=== PATIENT | male | born 1975 | race African-American/Black ===

== ENCOUNTER → 2017-02-27 | Outpatient (CLI) | payer MEDICAID, SELFPAY | PROVIDERS: Visit Provider Internal Medicine | DX: K30 Functional dyspepsia (principal) | CPT/HCPCS: 78264; A9541 ==

== ENCOUNTER → 2019-02-10 08:07 | Outpatient (CLI) | payer OTHER, SELFPAY | PROVIDERS: Visit Provider Family Medicine | DX: B83.9 Helminthiasis, unspecified (principal) | CPT/HCPCS: 87177 ==

== ENCOUNTER → 2020-12-22 07:56 | Outpatient (CLI) | payer OTHER, SELFPAY ==
--- NOTE | 2020-12-22 08:00 | US_ITS ---
PROCEDURE: US GALLBLADDER CLINICAL INDICATION: RUQ PAIN COMPARISON: No exams were available for comparison FINDINGS: Pancreas: Unremarkable/Not well seen Liver: Unremarkable. There is appropriate direction of blood flow within a non dilated portal vein. Right kidney: Unremarkable appearing. No hydronephrosis. Gallbladder: No stones are evident. There is no gallbladder wall thickening. Common duct is normal in diameter. IMPRESSION: Negative gallbladder ultrasound. No stones evident. Dictated by: Jose Cervantes MD 12/22/2020 09:26 Jose Cervantes MD in [place] 12/22/2020 09:26
--- NOTE | 2020-12-22 08:01 | FL_ITS ---
PROCEDURE: FL UPPER GI SMALL BOWEL CLINICAL INDICATION: LOWER ABD PAIN,ABD PAIN COMPARISON: No exams were available for comparison FINDINGS: Fluoroscopy time: 2.18 minutes. Box Attacher exam demonstrates a mild amount of retained colonic feces in the ascending and transverse colon. The esophagus has an unremarkable appearance. There was some minimal GE reflux noted. The stomach and duodenum are unremarkable. No mass or ulcerative lesion is evident. Small bowel follow-through was performed. Small bowel has an unremarkable appearance. No mass or obstructing lesions evident. No mucosal abnormalities. Spot views of the terminal ileum are unremarkable. IMPRESSION: Minimal GE reflux otherwise negative upper GI and small-bowel follow-through Dictated by: Jose Cervantes MD 12/22/2020 14:11 Jose Cervantes MD in [place] 12/22/2020 14:11
== END ==
PROVIDERS: PCP Family Medicine; Visit Provider Family Medicine
DX: R10.11 Right upper quadrant pain (principal); R10.84 Generalized abdominal pain; R10.30 Lower abdominal pain, unspecified
CPT/HCPCS: 74246; 74248; 76705

== ENCOUNTER 2021-03-23 18:57 | Emergency (ER) | payer OTHER, SELFPAY ==
[2021-03-23 19:16] VITALS: BMI 29.8
[2021-03-23 19:55] VITALS: BP 146/91; PULSE 68; RESP 18; TEMP 36.8; O2SAT 100; BMI 26.4
--- NOTE | 2021-03-23 20:32 | HMH.EDUTC ---
[facility] Disposition Clinical Impression: Puncture wound Disposition: Home, Self-Care Condition on Discharge: Good Instructions: DI for Puncture Wound, Amoxicillin and Clavulanic Acid Additional Instructions: Clean area well with antibacterial soap and water Take medication as prescribed FOllow up with Family Doctor immediately if any signs of worsening infection such as swelling, redness drainage or red streaks Return if needed Straight to ER if any life threatening symptoms Prescriptions: Amoxicillin/Potassium Clav [Augmentin 875-125 Tablet] 1 tab PO Q12H 7 Days #14 tab Transmission Status: Pending to Clinic Pharmacy [facility] Referrals: Jasper Quinteros MD [Primary Care Provider] - As needed Time of Disposition: 20:37 Medical Decision Making - Stanley Inquiry Pt receiving controlled substance: No Stanley was queried for this patient: No Vital Signs: 03/23/21 19:55 Temperature 98.2 F Temperature Source Oral Pulse Rate [Right Brachial] 68 Respiratory Rate 18 Blood Pressure [Right Arm] 146/91 H Blood Pressure Mean [Right Arm] 109 Blood Pressure Source [Right Arm] Automatic Cuff Blood Pressure Position [Right Arm] Sitting 02 Sat by Pulse Oximetry 100 Oxygen Delivery Method Room Air Orders (Tests/Meds): ED MEDICATIONS Discontinued Medications Generic Name Dose Route Start Last Admin Trade Name Freq PRN Reason Stop Dose Admin Tetanus/Reduced Diphtheria/Acell Pertussis 0.5 ml 03/23/21 19:16 03/23/21 20:00 Tet/Diphth/Pert-Adult 0.5ml Syringe IM 03/23/21 19:17 0.5 ml .ONCE ONE Administration [facility] HPI - General Stated complaint: screw punctured R hand Time Seen by Provider: 03/23/21 20:32 Mode of Arrival: Ambulatory Source of Information: Patient, Spouse Limitations: No Limitations Description of Symptoms (Recalled from Triage Doc. by RN): PATIENT C/O PUNCTURE WOUND FROM SCREW TO RIGHT HAND THAT OCCURED LAST NIGHT AND NEEDS TETANUS SHOT HEENT Symptoms (Recalled from RN notes): No Resp Symptoms (Recalled from RN notes): No Skin Symptoms (Recalled from RN notes): Yes MS Symptoms (Recalled from RN notes): No Functional Status (Recalled from RN notes): WNL - History of Present Illness Provider Complaint: Patient states that a screw punctured through the side of his palm of his hand State that he is needing a tetanus shot and thinks it may be getting infected it was looking a little red so he wanted to get it checked out - Related Data Home Medications Medication Instructions Recorded Confirmed Atorvastatin Calcium [Lipitor 10mg 10 mg PO DAILY 10/14/18 03/23/21 Tab] Previous Rx's Medication Instructions Recorded Amoxicillin/Potassium Clav 1 tab PO Q12H 7 Days #14 tab 03/23/21 [Augmentin 875-125 Tablet] Allergies Allergy/AdvReac Type Severity Reaction Status Date / Time No Known Allergies Allergy Verified 10/14/18 10:10 - Worker's Comp Is this a Worker's Comp case?: No [facility] History - Hepatitis A Screen Drug use history?: No High risk sexual behaviors?: No History of sexually transmitted infection?: No Currently employed?: No Childcare worker?: No Do you have indoor plumbing?: Yes Do you have electricity?: Yes Attestation statement:: This patient has been screened for Hepatitis A risk factors. I have reviewed the patient's past medical history: Yes - Social History Smoking Status: Current every day smoker Tobacco Type: cigarettes # Packs/Day (cigarettes): 1 Alcohol Intake: never Occupational Status: other ROS Obtained: Yes All systems reviewed & no additional complaints, Yes Systems reviewed as appropriate & no additional complaints - Constitutional Constitutional: Reports system reviewed and no additional complaints, except as docu, Denies body ache, Denies chills, Denies fever(s) - ENT Ears, Nose, Mouth, and Throat: Reports system reviewed and no additional complaints, except as docu - Cardiovascular Cardiovascular: Reports system reviewed
[2021-03-23 20:40] VITALS: BP 146/91; PULSE 68; RESP 18; TEMP 36.8; O2SAT 100
== END 2021-03-23 20:46 | disposition home or self-care (01) ==
PROVIDERS: Emergency Provider Nurse Practitioner; PCP Family Medicine
DX: S61.431A Puncture wound without foreign body of right hand, initial encounter (principal); W22.09XA Striking against other stationary object, initial encounter; Y92.89 Other specified places as the place of occurrence of the external cause; E78.5 Hyperlipidemia, unspecified
CPT/HCPCS: 90471; 90715; 99202; G0463

== ENCOUNTER 2021-04-13 18:43 | Inpatient (IN) | payer OTHER, SELFPAY ==
[2021-04-13] VITALS (13 sets, daily range): BP systolic 95–181; BP diastolic 42–126; PULSE 54–100; RESP 16–20; TEMP 36.6–37.1; O2SAT 91–100; BMI 27.2
--- NOTE | 2021-04-13 | IR_ITS ---
APPROVED REPORT Patient Location: [facility] Supervisor: SMILEY Lam RT (R) PROCEDURES Left heart catheterization Left ventriculogram Selective coronary angiogram Mechanical thrombectomy to the proximal dominant right coronary artery followed by drug-eluting stent deployment to the proximal mid and distal dominant right coronary artery in a contiguous manner Drug-eluting stent deployment to the proximal LAD INDICATION Acute inferior lateral ST elevation myocardial infarction, Coronary artery disease Informed consent was obtained prior to the procedure. COMPLICATIONS NONE Estimated Blood Loss: LESS THAN 10 ML TECHNIQUE One percent lidocaine used to anesthetize the right anterior aspect of the wrist. The right radial artery was accessed via the Seldinger technique. A 6 Yi sheath was placed in the right radial artery. 2.5 mg of verapamil, 800 mcg of nitroglycerin, 1mg Lidocaine were given through the arterial sheath. The Poppa 1 catheter was also used to perform left heart catheterization, left ventriculogram and selective coronary angiogram. The Poppa catheter was placed in the dominant right coronary artery and a Choice PT extra-support wire was placed through the occlusion. A penumbra aspiration catheter was then used to aspirate large amounts of thrombus. Upon several passages LUZ-3 flow was restored. Following this two 4 mm x 38 mm resolute Madhav stents were placed proximally mid and distally in a contiguous manner while overlapping one another each being deployed at 16 maxine. Excellent angiographic results were obtained with LUZ 0 flow at the beginning of the procedure and LUZ-3 flow at the end of the procedure. Following this left heart catheterization and left ventriculogram was performed. The catheter was then placed in the left main artery where the selective coronary angiography of the left system was performed. A Choice PT extra-support wire was placed distally into the LAD and a 4 mm x 18 mm resolute Madhav stent was deployed at 16 maxine in the proximal LAD reducing the severe stenosis to 0%. LUZ-3 flow was present before and after the procedure. At the end of procedure the apparatus was removed the sheath was removed good hemostasis was achieved using TR banding patient was transferred to the postop holding area stable condition ANGIOGRAPHIC RESULTS The left main artery Normal The left anterior descending artery Has a proximal concentric 70% stenosis with remaining vessel being widely patent The circumflex artery Nondominant and proximally normal with a 40% stenosis in a small proximal terminal obtuse marginal artery The right coronary artery Massively large dominant and initially proximally thrombosed. Following mechanical aspiration and stenting the right coronary artery is widely patent free of stenosis with wide inline distal flow The MORGAN ventriculogram reveals Ejection fraction of 45% with inferior wall hypokinesis The left ventricular end-diastolic pressure 20 mmHg IMPRESSION Thrombosed proximal dominant right coronary artery with successful mechanical thrombectomy followed by drug-eluting stent deployment restoring flow to LUZ-3 flow Severe stenosis in the proximal LAD followed by stenting reducing the stenosis to 0% Ejection fraction of 45% with regional wall motion abnormality Mildly elevated LVEDP PLAN 1. Brilinta 90 twice daily plus aspirin 81 mg daily 2. LDL goal of 55 to be achieved with high intensity statin 3. Carvedilol once hemodynamically stable 4. JAYDE inhibitor's once hemodynamically stable 5. Avoidance of tobacco products 6. Patient will be started on Xarelto 20 mg daily because of his atrial fibrillation. The duration of the atr
--- NOTE | 2021-04-13 18:39 | ECG_ITS ---
APPROVED REPORT Exam: Resting ECG HR:57 bpm ECG Measurements Heart Rate 57 AXES QRSd 104 QRS 82 QT 465 T 129 QTc 459 Conclusion ATRIAL FIBRILLATION WITH SLOW VENTRICULAR RESPONSE MARKED ST ELEVATION, CONSIDER INFERIOR INJURY [MARKED ST ELEVATION W/O NORMALLY INFLECTED T-WAVE IN II/aVF] ACUTE NV UNCONFIRMED REPORT Electronically signed by : Rizwan Meredith MD 04/13/2021 19:28:13
--- NOTE | 2021-04-13 18:46 | XR_ITS ---
PROCEDURE INFORMATION: Exam: XR Chest Exam date and time: 04/13/2021 6:46 PM Age: 46 years old Clinical indication: Pain; Angina pectoris; Patient HX: Stemi alert; Additional info: Cp TECHNIQUE: Imaging protocol: XR of the chest. Views: 1 view. COMPARISON: RF FL UPPER GI SMALL BOWEL 12/22/2020 8:40 AM FINDINGS: Tubes, catheters and devices: Defibrillator pads and chest compression monitoring device project over the patient. Lungs: Lungs are clear. Pleural spaces: No pleural effusion. No pneumothorax. Heart/Mediastinum: Cardiomediastinal silouhette is within normal limits. Bones/joints: No acute osseous abnormality. Soft tissues: Unremarkable. IMPRESSION: No evidence of acute cardiopulmonary disease.
[2021-04-13 18:51] LABS: Coronavirus 19, PCR Not Detected (NotDetected); Influenza A, PCR Not Detected (NotDetected); Influenza B, PCR Not Detected (NotDetected)
--- NOTE | 2021-04-13 18:56 | PC.NURSE ---
dr shereen whittington
[2021-04-13 18:59] LABS: Basophils # 0.2 K/mm3 (0-0.2); Eosinophils # 0.1 K/mm3 (0.0-0.4); Eosinophils % 1.2 % (0.1-12.0); Hemoglobin 14.7 g/dL (14.1-18.0); Lymphocytes # 4.3 K/mm3 (0.7-4.5); Lymphocytes % 45.3 % (10-50); Mean Corpuscular HGB Conc 31.2 g/dL (31.8-35.4); Mean Corpuscular Hemoglobin 27.7 pg (27.0-31.2); Mean Corpuscular Volume 88.9 fl (80-94); Mean Platelet Volume 7.5 fl (7.4-10.4); Monocytes # 0.5 K/mm3 (0.1-1.0); Monocytes % 5.5 % (1.7-9.3); Neutrophils # 4.4 K/mm3 (1.8-7.8); Platelet Count 471 K/mm3 (142-424); Red Blood Count 5.29 M/mm3 (4.60-6.20); Red Cell Distribution Width 13.9 % (11.5-17.5); White Blood Count 9.5 K/mm3 (4.8-10.8)
--- NOTE | 2021-04-13 19:03 | HMH.EDCP ---
ED Disposition Clinical Impression: ST elevation myocardial infarction (STEMI) Qualifiers: Involved coronary artery: unspecified coronary artery Qualified Code(s): I21.3 - ST elevation (STEMI) myocardial infarction of unspecified site Disposition: Admitted As Inpatient Condition on Discharge: Good - Critical Care Critical Care Time: No Attestation: On 04/13/21, the high probability of a clinically significant, sudden or life threatening deterioration of the following system(s) required my full and direct attention, intervention and personal management. The time I documented below is in addition to time spent performing reported procedures but includes the following listed in this critical care notation. Medical Decision Making - Medical Records Medical records reviewed: Yes: I reviewed the patient's medical records. - Stanley Inquiry Pt receiving controlled substance: No Vital Signs: 04/13/21 18:43 04/13/21 19:22 04/13/21 20:00 Temperature 98.0 F 98.0 F 98 F Temperature Source Oral Oral Temporal Artery Scan Pulse Rate 61 Pulse Rate [Right] 54 L 97 H Respiratory Rate 20 20 18 Blood Pressure 154/100 H Blood Pressure [Right Arm] 151/106 H 138/95 H Blood Pressure Mean [Right Arm] 121 109 Blood Pressure Source [Right Arm] Automatic Cuff Blood Pressure Position [Right Arm] Supine 02 Sat by Pulse Oximetry 100 95 Oxygen Delivery Method Room Air Room Air 04/13/21 20:13 04/13/21 20:15 Temperature Temperature Source Pulse Rate Pulse Rate [Right] 84 65 Respiratory Rate 20 Blood Pressure Blood Pressure [Right Arm] 132/93 H 142/96 H Blood Pressure Mean [Right Arm] 106 111 Blood Pressure Source [Right Arm] Blood Pressure Position [Right Arm] Supine Supine 02 Sat by Pulse Oximetry 91 L 92 L Oxygen Delivery Method Room Air Room Air - Lab Data Lab results reviewed: Yes: I reviewed the patient's lab results. Lab Results 04/13/21 18:45: SARS-CoV-2 (PCR) Not detected, Influenza A Untype (PCR) Not detected, Influenza Type B (PCR) Not detected 04/13/21 18:50: WBC 9.5, RBC 5.29, Hgb 14.7, Hct 47.0, MCV 88.9, MCH 27.7, MCHC 31.2 L, RDW 13.9, Plt Count 471 H, MPV 7.5, Neut % (Auto) 46.0, Lymph % (Auto) 45.3, [place] % (Auto) 5.5, Eos % (Auto) 1.2, Baso % (Auto) 2.0, Neut # (Auto) 4.4, Lymph # (Auto) 4.3, [place] # (Auto) 0.5, Eos # (Auto) 0.1, Baso # (Auto) 0.2 04/13/21 18:51: Sodium 138, Potassium 3.5, Chloride 107, Carbon Dioxide 22, Anion Gap 12.5, BUN 18, Creatinine 1.10, Estimated Creat Clear 104, Estimated GFR 73, Est GFR ( Amer) 88, Glucose 165 H, Calcium 9.2, Total Bilirubin 1.0, AST 70 H, ALT 49, Alkaline Phosphatase 67, Troponin I 0.01, Total Protein 7.8, Albumin 4.6, Globulin 3.2, Albumin/Globulin Ratio 1.4 04/13/21 18:57: POC Glucose 117 H Result diagrams: 04/13/21 18:50 04/13/21 18:51 Orders (Tests/Meds): ED MEDICATIONS Generic Name Dose Route Start Last Admin Trade Name Freq PRN Reason Stop Dose Admin Acetaminophen 325 mg 04/13/21 19:51 Acetaminophen 325mg Tab PO 05/13/21 19:50 Q4HP PRN Mild Pain Acetaminophen 650 mg 04/13/21 19:51 Acetaminophen 325mg Tab PO 05/13/21 19:50 Q4HP PRN Mild to Moderate Pain Aspirin 81 mg 04/14/21 09:00 Aspirin Ec 81mg Tablet PO 05/14/21 08:59 DAILY LUIS Atorvastatin Calcium 80 mg 04/13/21 21:00 Atorvastatin 40mg Tablet PO 05/13/21 20:59 HS LUIS Diphenhydramine HCl 50 mg 04/13/21 19:07 04/13/21 19:29 Diphenhydramine 50mg/Ml Vial IV 04/13/21 19:08 50 mg ONCE ONE Administration Fentanyl Citrate 25 mcg 04/13/21 19:07 04/13/21 19:32 Fentanyl 100mcg/2ml Vial IV 04/14/21 19:07 100 mcg Q3MINP PRN Administration Moderate to Severe Pain Fentanyl Citrate 50 mcg 04/13/21 19:07 04/13/21 19:45 Fentanyl 100mcg/2ml Vial IV 04/14/21 19:07 50 mcg Q3MINP PRN Administration Moderate to Severe Pain Fentanyl Citrate 25 mcg 04/13/21 19:07 Fentanyl 250mcg/5ml Vi
[2021-04-13 19:06] LABS: POC Glucose,Bedside 117 (70-110)
[2021-04-13 19:08] LABS: Chloride 107 mmol/L (98-107); Potassium 3.5 mmoL/L (3.5-5.1); Sodium 138 mmol/L (136-145)
[2021-04-13 19:10] LABS: Blood Urea Nitrogen 18 mg/dl (9-20); Creatinine Clearance Estimated 104 mL/min (50-200); Estimated Glomerular Filt Rate 73 ml/min (>60); GFR (African American) 88 ML/MIN (>60)
[2021-04-13 19:11] LABS: Alanine Aminotransferase 49 U/L (12-78); Albumin Level 4.6 g/dl (3.5-5.0); Albumin/Globulin Ratio 1.4 (1.1-1.8); Alkaline Phosphatase 67 U/L (38-126); Anion Gap 12.5 mEq/L (5-15); Aspartate Amino Transferase 70 U/L (17-59); Carbon Dioxide 22 mmol/L (22.0-30.0); Globulin 3.2 g/dL (1.3-3.2); Total Protein,Serum 7.8 g/dl (6.3-8.2)
[2021-04-13 19:12] LABS: Calcium 9.2 mg/dl (8.4-10.2); Glucose 165 mg/dl (74-100)
[2021-04-13 19:30] LABS: Troponin I 0.01 ng/ml (0.00-0.034)
--- NOTE | 2021-04-13 20:25 | PC.NURSE ---
PT ARRIVED TO FLOOR VIA STRETCHER FROM PRODUCTION SUPERINTENDENT HYDRO W/STAFF @ 2024
[2021-04-13 20:27] LABS: CATHL Activated Clotting Time 290 SEC (74-125)
[2021-04-13 20:28] LABS: CATHL Activated Clotting Time 286 SEC (74-125)
--- NOTE | 2021-04-13 22:54 | PC.NURSE ---
spoke with MD Santos about pt's anxiety, pain, and hypertension, new orders received, will give and continue to monitor
--- NOTE | 2021-04-13 23:00 | PC.NURSE ---
pt stated only history has is hyperlipidemia for which he takes atorvastatin 10mg at bedtime, GERD for which he takes omeprazole 20mg at bedtime, uses nicotine gum intermittently over the past 10 years, and a mulitvitamin; will alert day RN in am to let team know when rounding in am to get these meds ordered for pt
[2021-04-14] VITALS (24 sets, daily range): BP systolic 119–159; BP diastolic 86–121; PULSE 61–114; RESP 14–18; TEMP 36.6–36.9; O2SAT 95–100; BMI 27.3
[2021-04-14 06:35] LABS: Cholesterol 166 mg/dl (140-200); HDL Cholesterol 56 mg/dl (40-60); Triglycerides 163 mg/dl (30-150); VLDL Cholesterol 33 mg/dL (0-40)
[2021-04-14 06:46] LABS: Direct LDL Cholesterol 37.39 mg/dL (100-129)
--- NOTE | 2021-04-14 07:15 | PC.NURSE ---
spoke with MD Danielle MD ordered echo, ekg, and 10mg bisoprolol BID, will send fax to pharmacy to get med ordered
--- NOTE | 2021-04-14 07:22 | ECG_ITS ---
APPROVED REPORT Exam: Resting ECG HR:108 bpm ECG Measurements Heart Rate 108 AXES NJ 237 P 259 QRSd 82 QRS -13 QT 350 T -50 QTc 413 Conclusion SINUS TACHYCARDIA WITH FIRST DEGREE AV BLOCK MINIMAL VOLTAGE CRITERIA FOR LVH, CONSIDER NORMAL VARIANT [MEETS CRITERIA IN ONE OF: R(aVL), S(V1), R(V5), R(V5/V6)+S(V1)] ABNORMAL ECG UNCONFIRMED REPORT Electronically signed by : Rizwan Meredith MD 04/14/2021 09:37:01
--- NOTE | 2021-04-14 07:56 | HMH.PHAINT ---
verified home med list using list from Clinic Pharmacy and pt interview
--- NOTE | 2021-04-14 07:57 | P.CONPHA_ITS ---
[facility] Pharmacy VTE Monitoring - Patient Demographics Admission date: 04/14/21 Report Date: 04/14/21 Time: 07:57 Allergies/Adverse Reactions: Patient Allergies No Known Allergies Allergy (Verified 10/14/18 10:10) Height: 1.8 m Weight: 88.6 kg Patient Problems: Current Active Problems ST elevation myocardial infarction (STEMI) (Acute) - VTE Risk Labs: VTE Related Lab Results Hgb 14.7 g/dL (14.1-18.0) 04/13/21 18:50 Hct 47.0 % (42.0-52.0) 04/13/21 18:50 Plt Count 471 K/mm3 (142-424) H 04/13/21 18:50 BUN 18 mg/dl (9-20) 04/13/21 18:51 Creatinine 1.10 mg/dl (0.66-1.25) 04/13/21 18:51 Estimated Creat Clear 104 mL/min (50-200) 04/13/21 18:51 Clinical Trial Participant: No - Prophylaxis VTE Prophylaxis Ordered?: Yes Types of VTE Prophylaxis: TEDS Knee High, Pharmacological
--- NOTE | 2021-04-14 08:00 | CA_ITS ---
APPROVED REPORT EXAM: Comprehensive 2D, Doppler, and color-flow Echocardiogram Vendor Relationship Manager: Nhi Wray, RT(R) Ht: 5 ft 10 in Wt: 190lbs BSA: 2.04 BP: 138/95 mmHg Indications: STEMI, heart cath 04/13/21 with 3 cardiac stents placed, EF on cath 45%, CP while playing basketball 04/13, history of smoking quit 7 years ago, family history of HD. 2D Dimensions LVOT 2.01 cm (M/F) 1.5-2.5 LVEF (Lopez's) 36.00 % M: 52 - 72 LV Volume 119.30 mL M: 62 - 150 LV Volume Index 58.48 mL/m2 M: 34 - 74 LA Volume 20.40 mL LA Volume Index 10.00 mL/m2 (M/F) 16-34 M-Mode Dimensions RVDd 2.38 cm (0.9-2.6) LA Diam 3.23 cm (1.9-4.0) LVDd 4.96 cm (3.5-5.7) Ao Diam 2.72 cm (2.0-3.7) LVDs 4.22 cm (3.5-5.7) IVSd 0.70 cm (0.6-1.1) PWd 0.87 cm (0.6-1.1) EF (Teich) 31.50% FS 14.90% EDV (Teich) 116.10 mL ESV (Teich) 79.50 mL LV Diastology E Decel Time 123.00 (160-240 msec) E/A Ratio 3.1 MED E' 14.90 (< 7 cm/sec) E'/MED E' Ratio 8.43 (>14) LAT E' 19.00 (<10 cm/sec) E/LAT E' Ratio 6.61 (>14) Mitral Valve MV E Max Rubio. 126.00 (40-130 cm/s) MV A Velocity 41.00 (40-130 cm/s) E/A Ratio 3.09 MV Decel. Time 123.00 (160-240 ms) MV PHT 36.00 ms Tricuspid Valve TR P. Velocity 221.00 cm/s RAP Estimate 10.00 mmHg RVSP 29.60 mmHg Left Ventricle Left atrium is normal size, left ventricle is normal size, there is no concentric left ventricular hypertrophy, visually estimated ejection fraction approximately 40%, there is marked hypokinesis involving the basal septum, inferior and inferior basal wall. Diastolic parameters are within normal range. Right Ventricle Right atrium and right ventricle are normal size and contractility. Aortic Valve Aortic valve is minimally thickened and fibrosed, there is no aortic stenosis or aortic insufficiency. Mitral Valve Mitral valve is grossly normal, there is trace mitral regurgitation. Tricuspid Valve Tricuspid valve grossly normal, there is trace tricuspid regurgitation, tricuspid regurgitation jet velocity is inadequate for calculation of the right ventricular systolic pressure. Pulmonic Valve Pulmonic valve is poorly visualized. Great Vessels Aortic root is normal size. Inferior vena cava is normal size with less than 50% inspiratory collapse. Pericardium No significant pericardial effusion noted. Conclusion 1. Normal left ventricular size, visually estimated ejection fraction 40% with segmental wall motion abnormality described above, diastolic parameters are within normal range. 2. Trace mitral and tricuspid regurgitation. 3. No significant pericardial effusion. 4. Inferior vena cava is normal size with less than 50% inspiratory collapse. Electronically signed by : Star Braden MD 04/14/2021 10:27:08
--- NOTE | 2021-04-14 08:55 | HMH.HP ---
*Admission Date: 04/13/21 *Chief complaint: Chest pain *History of present illness: 46-year-old male presented to the emergency department yesterday evening after he developed some chest pain and discomfort with associated shortness of breath and diaphoresis while he was playing basketball. Patient had significant EKG changes consistent with STEMI. Patient was taken immediately to the [facility] and underwent stenting of the right coronary artery and LAD. This morning patient reports some soreness in the chest. Patient also had atrial fibrillation at the time of catheterization. Patient's medical history is significant for 1-1/2 pack/day cigarette use for approximately 20 years. Quit smoking approximately 8 years ago. There is family history of coronary artery disease. Patient has complained of chest pain intermittently for 8 to 9 years and has had prior ischemic work-up. Patient also has a history of GERD for which she has taken proton pump inhibitors in the past. [facility] History I have reviewed the patient's past medical history: Yes Medical History: Reports:: Hyperlipidemia *Have you ever received a pneumonia vaccine?: No *Have you received a flu vaccine this season?: No - *Social History Last grade of school completed: High school graduate Smoking Status: Current every day smoker Tobacco Type: cigarettes # Packs/Day (cigarettes): 1 Alcohol Intake: never *Occupational Status:: employed *Travel in the last 8 weeks: None Family Hx:: Coronary Artery Disease Review of Systems - Review of Systems Review of systems:: pertinent systems reviewed and negative unless documented below - *Neurologic Denies headache(s), Denies seizure-like activity Meds Home Medications Medication Instructions Recorded Confirmed Type Atorvastatin Calcium [Lipitor 10mg 10 mg PO DAILY 10/14/18 04/13/21 History Tab] Nicotine Polacrilex [Nicotine Gum 4 mg PO Q4-6H PRN 04/13/21 04/13/21 History 4mg] Omeprazole 20 mg PO DAILY 04/13/21 04/13/21 History Allergies Allergy/AdvReac Type Severity Reaction Status Date / Time No Known Allergies Allergy Verified 10/14/18 10:10 Exam Vital signs and Labs for Last 24 Hours: Temp Pulse Resp BP Pulse Ox 97.8 F 110 H 17 159/109 H 98 04/14/21 08:00 04/14/21 08:00 04/14/21 08:00 04/14/21 08:00 04/14/21 08:00 Laboratory Results - last 24 hr 04/13/21 18:45: SARS-CoV-2 (PCR) Not detected, Influenza A Untype (PCR) Not detected, Influenza Type B (PCR) Not detected 04/13/21 18:50: WBC 9.5, RBC 5.29, Hgb 14.7, Hct 47.0, MCV 88.9, MCH 27.7, MCHC 31.2 L, RDW 13.9, Plt Count 471 H, MPV 7.5, Neut % (Auto) 46.0, Lymph % (Auto) 45.3, [place] % (Auto) 5.5, Eos % (Auto) 1.2, Baso % (Auto) 2.0, Neut # (Auto) 4.4, Lymph # (Auto) 4.3, [place] # (Auto) 0.5, Eos # (Auto) 0.1, Baso # (Auto) 0.2 04/13/21 18:51: Sodium 138, Potassium 3.5, Chloride 107, Carbon Dioxide 22, Anion Gap 12.5, BUN 18, Creatinine 1.10, Estimated Creat Clear 104, Estimated GFR 73, Est GFR ( Amer) 88, Glucose 165 H, Calcium 9.2, Total Bilirubin 1.0, AST 70 H, ALT 49, Alkaline Phosphatase 67, Troponin I 0.01, Total Protein 7.8, Albumin 4.6, Globulin 3.2, Albumin/Globulin Ratio 1.4 04/13/21 18:57: POC Glucose 117 H 04/13/21 20:28: Activated Clotting Time 286 H* 04/13/21 20:44: Activated Clotting Time 290 H* 04/14/21 05:55: Triglycerides 163 H, Cholesterol 166, LDL Cholesterol Direct 37.39 L, VLDL Cholesterol 33, HDL Cholesterol 56, Cholesterol/HDL Ratio 3.0 I & O for Last 24 hours: Intake & Output 04/11/21 04/12/21 04/13/21 04/14/21 11:59 11:59 11:59 11:59 Output Total 600 / 600 Balance -600 / -600 Weight 195 lb 5.273 oz - Constitutional no acute distress - *Routine HEENT Exam Head: Present: normocephalic Eye: Present: EOMI, PERRL ENT: Present: mucous membranes moist - *Routine Neck Exam Present: supple. Absent: lymphadenopathy - *Routine Respiratory Exam Present: CTA bilaterally - *Routine Cardi
--- NOTE | 2021-04-14 10:52 | PC.NURSE ---
HR 120-130s and R-R irregularity @ times. BP 151/115. Pt is A&O. Contacted Dr. Santos, who ordered an Amio 150mg over 10min bolus and to start Amio gtt for next 24hrs. Orders faxed to pharmacy.
--- NOTE | 2021-04-14 11:00 | PC.NURSE ---
Amio bolus started
--- NOTE | 2021-04-14 11:10 | PC.NURSE ---
Amio bolus complete. Amio maintenance gtt started @ 1mg/min (33.3mL/hr) for next 6 hrs. Will decrease to 0.5mg/min @ 1710. HR 79. R-R irregularity continues. Pt A&O.
--- NOTE | 2021-04-14 12:30 | PC.NURSE ---
Dr. Santos @ . He ordered to increase Xanax to 1mg q6hr prn, increase Lisinopril to 20mg BID, give Xanax 1mg now, give Lisinopril 20mg now, give Morphine 4mg IV now. Orders faxed to pharmacy.
--- NOTE | 2021-04-14 17:10 | PC.NURSE ---
Amio gtt decreased to 0.5mg/min per protocol.
[2021-04-15] VITALS (17 sets, daily range): BP systolic 95–159; BP diastolic 59–111; PULSE 60–86; RESP 14–18; TEMP 36.3–37.4; O2SAT 95–99; BMI 26.6
--- NOTE | 2021-04-15 05:00 | PC.NURSE ---
Pt has remained hypertensive this shift. BP has improved some this AM. Pt has slept better overnight. Denies any CP or soa. Has remained on RA. HR 60s with periods of bradycardia. Pt has been sinus to sinus amdi with PAC's and PVC's noted on telemetry. states he hasn't been eating good. New IV placed this shift. #20 in LFA. No other concerns. Will continue to monitor.
[2021-04-15 06:25] LABS: Chloride 100 mmol/L (98-107); Sodium 132 mmol/L (136-145)
[2021-04-15 06:26] LABS: Potassium 4.3 mmoL/L (3.5-5.1)
[2021-04-15 06:28] LABS: Anion Gap 11.3 mEq/L (5-15); Basophils # 0.1 K/mm3 (0-0.2); Basophils % 0.8 % (0.1-2.0); Blood Urea Nitrogen 11 mg/dl (9-20); Carbon Dioxide 25 mmol/L (22.0-30.0); Creatinine Clearance Estimated 115 mL/min (50-200); Eosinophils # 0.1 K/mm3 (0.0-0.4); Eosinophils % 0.9 % (0.1-12.0); Estimated Glomerular Filt Rate 81 ml/min (>60); GFR (African American) 98 ML/MIN (>60); Hematocrit 45.3 % (42.0-52.0); Hemoglobin 14.2 g/dL (14.1-18.0); Lymphocytes # 3.6 K/mm3 (0.7-4.5); Lymphocytes % 43.3 % (10-50); Mean Corpuscular HGB Conc 31.4 g/dL (31.8-35.4); Mean Corpuscular Volume 89.4 fl (80-94); Mean Platelet Volume 7.5 fl (7.4-10.4); Monocytes # 0.6 K/mm3 (0.1-1.0); Monocytes % 7.2 % (1.7-9.3); Neutrophils % 47.8 % (37.0-80.0); Platelet Count 457 K/mm3 (142-424); Red Blood Count 5.07 M/mm3 (4.60-6.20); Red Cell Distribution Width 14.2 % (11.5-17.5); White Blood Count 8.3 K/mm3 (4.8-10.8)
[2021-04-15 06:29] LABS: Calcium 9.4 mg/dl (8.4-10.2); Glucose 123 mg/dl (74-100)
--- NOTE | 2021-04-15 08:19 | P.PN_ITS ---
Internal Medicine - PN: Subj *Date: 04/15/21 *Time: 08:19 Interval history: Patient developed recurrence of atrial fibrillation yesterday and was placed on a amiodarone drip. Patient is converted back to sinus rhythm with right in the 60s and 70s on telemetry. Patient tells me the heaviness he felt in his chest seemed to disappear after patient was placed on amiodarone and he converted back to sinus rhythm. Patient did have morphine ordered every 30 minutes for pain. Staff reports patient has been requesting it very frequently, sometimes simply for sedative purposes. Blood pressure has improved since admission although remains elevated. Exam Vital signs and Labs for Last 24 Hours: Temp Pulse Resp BP Pulse Ox 97.9 F 61 14 159/85 H 98 04/15/21 08:09 04/15/21 06:00 04/15/21 06:00 04/15/21 06:00 04/15/21 06:00 Laboratory Results - last 24 hr 04/15/21 05:20: WBC 8.3, RBC 5.07, Hgb 14.2, Hct 45.3, MCV 89.4, MCH 28.0, MCHC 31.4 L, RDW 14.2, Plt Count 457 H, MPV 7.5, Neut % (Auto) 47.8, Lymph % (Auto) 43.3, [place] % (Auto) 7.2, Eos % (Auto) 0.9, Baso % (Auto) 0.8, Neut # (Auto) 4.0, Lymph # (Auto) 3.6, [place] # (Auto) 0.6, Eos # (Auto) 0.1, Baso # (Auto) 0.1 04/15/21 05:20: Sodium 132 L, Potassium 4.3 D, Chloride 100, Carbon Dioxide 25, Anion Gap 11.3, BUN 11 D, Creatinine 1.00, Estimated Creat Clear 115, Estimated GFR 81, Est GFR ( Amer) 98, Glucose 123 H, Calcium 9.4 I & O for Last 24 hours: Intake & Output 04/12/21 04/13/21 04/14/21 04/15/21 11:59 11:59 11:59 11:59 Intake Total 120 / 120 1431 / 1431 Output Total 600 / 600 Balance -480 / -480 1431 / 1431 Weight 195 lb 5.273 oz 190 lb - Constitutional no acute distress - *Routine Respiratory Exam Present: CTA bilaterally - *Routine Cardiovascular Exam Present: RRR Assessment and Plan (1) ST elevation myocardial infarction (STEMI) Status: Acute Qualifiers: Involved coronary artery: unspecified coronary artery Qualified Code(s): I21.3 - ST elevation (STEMI) myocardial infarction of unspecified site Category: Medical Code(s): I21.3 - ST elevation (STEMI) myocardial infarction of unspecified site (2) Essential hypertension Status: Acute Category: Medical Code(s): I10 - Essential (primary) hypertension (3) Atrial fibrillation Status: Acute Category: Medical Code(s): I48.91 - Unspecified atrial fibrillation - Assessment and plan all Dx Assessment and Plan for all problems:: 1. Continue dual antiplatelet therapy 2. Patient is maxed out on bisoprolol and lisinopril. He received a dose of hydrochlorothiazide last night and this will be continued at max dosing of 25 mg daily beginning this morning for his hypertension 3. Amiodarone will transition to oral once IV is complete 4. Likely discharge tomorrow 5. Patient is been encouraged to ambulate once he is free of amiodarone drip
[2021-04-16] VITALS (12 sets, daily range): BP systolic 102–127; BP diastolic 55–76; PULSE 67–78; RESP 16–20; TEMP 36.6–38.7; O2SAT 96–100; BMI 26.6
--- NOTE | 2021-04-16 06:35 | PC.NURSE ---
Addendum entered by Kena Lara RN 04/16/21 06:40: pt has remained on room air Original Note: pt has rested intermittently t/o shift, has ambulated to the bathroom, telemetry has shown NSR, HR 78-86, systolic BP 95-133, pt has had no complaints of SOA or chest pain, has had some anxiety this shift and was treated per MAY, did have a temp of 101.7 and was treated per MAY, temp has returned to 99.0 at last check
[2021-04-16 08:18] LABS: Basophils # 0.1 K/mm3 (0-0.2); Basophils % 0.7 % (0.1-2.0); Eosinophils # 0.1 K/mm3 (0.0-0.4); Eosinophils % 0.9 % (0.1-12.0); Hematocrit 44.7 % (42.0-52.0); Hemoglobin 14.6 g/dL (14.1-18.0); Lymphocytes # 1.2 K/mm3 (0.7-4.5); Lymphocytes % 17.1 % (10-50); Mean Corpuscular HGB Conc 32.6 g/dL (31.8-35.4); Mean Corpuscular Hemoglobin 28.2 pg (27.0-31.2); Mean Corpuscular Volume 86.6 fl (80-94); Mean Platelet Volume 8.1 fl (7.4-10.4); Monocytes # 0.8 K/mm3 (0.1-1.0); Monocytes % 11.1 % (1.7-9.3); Neutrophils # 4.9 K/mm3 (1.8-7.8); Neutrophils % 70.2 % (37.0-80.0); Platelet Count 267 K/mm3 (142-424); Red Blood Count 5.16 M/mm3 (4.60-6.20); Red Cell Distribution Width 14.1 % (11.5-17.5)
--- NOTE | 2021-04-16 08:29 | P.PN_ITS ---
Internal Medicine - PN: Subj *Date: 04/16/21 *Time: 08:29 Interval history: Patient had adjustments made to medications yesterday and blood pressures are now lower. Patient has been ambulating without difficulty. He did develop fever overnight is to 101.7. Patient denies shortness of breath or cough. Exam Vital signs and Labs for Last 24 Hours: Temp Pulse Resp BP Pulse Ox 101.1 F H 73 16 127/57 L 98 04/16/21 07:27 04/16/21 06:00 04/16/21 06:00 04/16/21 06:00 04/16/21 06:00 Laboratory Results - last 24 hr 04/16/21 07:12: WBC 7.0, RBC 5.16, Hgb 14.6, Hct 44.7, MCV 86.6, MCH 28.2, MCHC 32.6, RDW 14.1, Plt Count 267 D, MPV 8.1, Neut % (Auto) 70.2, Lymph % (Auto) 17.1, [place] % (Auto) 11.1 H, Eos % (Auto) 0.9, Baso % (Auto) 0.7, Neut # (Auto) 4.9, Lymph # (Auto) 1.2, [place] # (Auto) 0.8, Eos # (Auto) 0.1, Baso # (Auto) 0.1 I & O for Last 24 hours: Intake & Output 04/13/21 04/14/21 04/15/21 04/16/21 11:59 11:59 11:59 11:59 Intake Total 120 / 120 1491 / 1491 683 / 683 Output Total 600 / 600 Balance -480 / -480 1491 / 1491 683 / 683 Weight 195 lb 5.273 oz 190 lb 190 lb 6.4 oz Narrative: Patient looks comfortable. Lungs are clear with possible decreased breath sounds at the left base. Heart has a regular rate and rhythm. Abdomen is soft. Skin is without rashes Assessment and Plan (1) ST elevation myocardial infarction (STEMI) Status: Acute Qualifiers: Involved coronary artery: unspecified coronary artery Qualified Code(s): I21.3 - ST elevation (STEMI) myocardial infarction of unspecified site Category: Medical Code(s): I21.3 - ST elevation (STEMI) myocardial infarction of unspecified site (2) Essential hypertension Status: Acute Category: Medical Code(s): I10 - Essential (primary) hypertension (3) Atrial fibrillation Status: Acute Category: Medical Code(s): I48.91 - Unspecified atrial fibrillation - Assessment and plan all Dx Assessment and Plan for all problems:: 1. Continue bisoprolol 10 twice daily, lisinopril 20 twice daily for hypertension. Due to the patient's abrupt drop in blood pressure I am going to discontinue the hydrochlorothiazide this morning 2. Amiodarone 200 mg twice daily for his recent atrial fibrillation. Continue Xarelto 3. Continua DAPT for recent STEMI 4. Covid and flu swabs this morning. I have spoken with nursing staff and should they notice any call from the patient will proceed with chest x-ray. Suspect viral infection or atelectasis as source of fever. He will start calvin ntive spirometry
[2021-04-16 09:50] LABS: Influenza A, PCR Not Detected (NotDetected); Influenza B, PCR Not Detected (NotDetected)
[2021-04-16 10:20] LABS: Coronavirus 19, PCR Detected (NotDetected)
[2021-04-16 10:59] LABS: Chloride 95 mmol/L (98-107); Potassium 3.8 mmoL/L (3.5-5.1); Sodium 134 mmol/L (136-145)
[2021-04-16 11:02] LABS: Anion Gap 10.8 mEq/L (5-15); Blood Urea Nitrogen 14 mg/dl (9-20); Calcium 9.7 mg/dl (8.4-10.2); Carbon Dioxide 32 mmol/L (22.0-30.0); Creatinine Clearance Estimated 89 mL/min (50-200); Estimated Glomerular Filt Rate 60 ml/min (>60); GFR (African American) 73 ML/MIN (>60); Glucose 86 mg/dl (74-100)
[2021-04-17] VITALS: BP 119/63; PULSE 70; PULSE 78; RESP 18; TEMP 38.1; O2SAT 95
[2021-04-17 04:00] VITALS: BP 106/61; PULSE 60; PULSE 71; RESP 18; TEMP 36.8; O2SAT 100
--- NOTE | 2021-04-17 05:25 | PC.NURSE ---
pt has rested intermittently t/o shift, has had no complaints of SOA or chest pain, HR 67-78, systolic BP 106-119, has remained on room air with O2 sats 95-100%, temp at 0000 was 100.5 treated per MAR, 0400 temp 98.3, treated for anxiety one time this shift per MAY
[2021-04-17 05:44] VITALS: BMI 26.6
[2021-04-17 06:57] LABS: Basophils % 0.2 % (0.1-2.0); Eosinophils % 0.1 % (0.1-12.0); Hemoglobin 13.5 g/dL (14.1-18.0); Lymphocytes # 1.4 K/mm3 (0.7-4.5); Lymphocytes % 27.6 % (10-50); Mean Corpuscular HGB Conc 32.2 g/dL (31.8-35.4); Mean Corpuscular Hemoglobin 28.2 pg (27.0-31.2); Mean Corpuscular Volume 87.7 fl (80-94); Mean Platelet Volume 7.5 fl (7.4-10.4); Monocytes # 0.5 K/mm3 (0.1-1.0); Monocytes % 9.8 % (1.7-9.3); Neutrophils # 3.3 K/mm3 (1.8-7.8); Neutrophils % 62.3 % (37.0-80.0); Platelet Count 265 K/mm3 (142-424); Red Blood Count 4.79 M/mm3 (4.60-6.20); White Blood Count 5.2 K/mm3 (4.8-10.8)
[2021-04-17 07:00] LABS: Chloride 97 mmol/L (98-107); Sodium 133 mmol/L (136-145)
[2021-04-17 07:01] LABS: Potassium 3.9 mmoL/L (3.5-5.1)
[2021-04-17 07:03] LABS: Blood Urea Nitrogen 16 mg/dl (9-20); Creatinine Clearance Estimated 96 mL/min (50-200); Estimated Glomerular Filt Rate 66 ml/min (>60); GFR (African American) 80 ML/MIN (>60)
[2021-04-17 07:04] LABS: Anion Gap 9.9 mEq/L (5-15); Calcium 8.9 mg/dl (8.4-10.2); Carbon Dioxide 30 mmol/L (22.0-30.0); Glucose 105 mg/dl (74-100)
--- NOTE | 2021-04-17 07:18 | HMH.ACPN2 ---
Internal Medicine - PN: Subj *Date: 04/17/21 *Time: 07:18 Interval history: Patient has no complaints. He does report actually breathing a little bit better since his heart catheterization and stenting. He has had low-grade fevers overnight and a positive Covid test yesterday. He denies shortness of breath. He does have some sore throat Exam Vital signs and Labs for Last 24 Hours: Temp Pulse Resp BP Pulse Ox 98.3 F 71 18 106/61 L 100 04/17/21 04:00 04/17/21 04:00 04/17/21 04:00 04/17/21 04:00 04/17/21 04:00 Laboratory Results - last 24 hr 04/16/21 07:12: WBC 7.0, RBC 5.16, Hgb 14.6, Hct 44.7, MCV 86.6, MCH 28.2, MCHC 32.6, RDW 14.1, Plt Count 267 D, MPV 8.1, Neut % (Auto) 70.2, Lymph % (Auto) 17.1, [place] % (Auto) 11.1 H, Eos % (Auto) 0.9, Baso % (Auto) 0.7, Neut # (Auto) 4.9, Lymph # (Auto) 1.2, [place] # (Auto) 0.8, Eos # (Auto) 0.1, Baso # (Auto) 0.1 04/16/21 09:29: SARS-CoV-2 (PCR) Detected A, Influenza A Untype (PCR) Not detected, Influenza Type B (PCR) Not detected 04/16/21 10:24: Sodium 134 L, Potassium 3.8, Chloride 95 L, Carbon Dioxide 32 H, Anion Gap 10.8, BUN 14 D, Creatinine 1.30 H D, Estimated Creat Clear 89, Estimated GFR 60, Est GFR ( Amer) 73 D, Glucose 86, Calcium 9.7 04/17/21 06:44: WBC 5.2 D, RBC 4.79, Hgb 13.5 L, Hct 42.0, MCV 87.7, MCH 28.2, MCHC 32.2, RDW 14.0, Plt Count 265, MPV 7.5, Neut % (Auto) 62.3, Lymph % (Auto) 27.6, [place] % (Auto) 9.8 H, Eos % (Auto) 0.1, Baso % (Auto) 0.2, Neut # (Auto) 3.3, Lymph # (Auto) 1.4, [place] # (Auto) 0.5, Eos # (Auto) 0.0, Baso # (Auto) 0.0 04/17/21 06:44: Sodium 133 L, Potassium 3.9, Chloride 97 L, Carbon Dioxide 30, Anion Gap 9.9, BUN 16, Creatinine 1.20, Estimated Creat Clear 96, Estimated GFR 66, Est GFR ( Amer) 80, Glucose 105 H D, Calcium 8.9 I & O for Last 24 hours: Intake & Output 04/14/21 04/15/21 04/16/21 04/17/21 11:59 11:59 11:59 11:59 Intake Total 120 / 120 1491 / 1491 743 / 743 480 / 480 Output Total 600 / 600 Balance -480 / -480 1491 / 1491 743 / 743 480 / 480 Weight 195 lb 5.273 oz 190 lb 190 lb 6.4 oz 190 lb 6.4 oz Narrative: Patient is in no distress. Oropharynx is noninflamed. Neck is supple without lymphadenopathy. Lungs are clear. Heart has a regular rate and rhythm Assessment and Plan (1) ST elevation myocardial infarction (STEMI) Status: Acute Qualifiers: Involved coronary artery: unspecified coronary artery Qualified Code(s): I21.3 - ST elevation (STEMI) myocardial infarction of unspecified site Category: Medical Code(s): I21.3 - ST elevation (STEMI) myocardial infarction of unspecified site (2) Essential hypertension Status: Acute Category: Medical Code(s): I10 - Essential (primary) hypertension (3) Atrial fibrillation Status: Acute Category: Medical Code(s): I48.91 - Unspecified atrial fibrillation - Assessment and plan all Dx Assessment and Plan for all problems:: 1. Plan will be discharged home later today after cardiology evaluation.
--- NOTE | 2021-04-17 07:20 | HMH.DCSUM ---
General - General Admission date:: 04/13/21 Discharge date: 04/17/21 HPI HPI: 46-year-old male presented to the emergency department yesterday evening after he developed some chest pain and discomfort with associated shortness of breath and diaphoresis while he was playing basketball. Patient had significant EKG changes consistent with STEMI. Patient was taken immediately to the Compositor Apprentice and underwent stenting of the right coronary artery and LAD. This morning patient reports some soreness in the chest. Patient also had atrial fibrillation at the time of catheterization. Patient's medical history is significant for 1-1/2 pack/day cigarette use for approximately 20 years. Quit smoking approximately 8 years ago. There is family history of coronary artery disease. Patient has complained of chest pain intermittently for 8 to 9 years and has had prior ischemic work-up. Patient also has a history of GERD for which she has taken proton pump inhibitors in the past. Hospital Course Hospital Course: Upon presentation the emergency department patient was taken to the Compositor Apprentice with results of left heart catheterization by Dr. Santos as follows: ANGIOGRAPHIC RESULTS The left main artery Normal The left anterior descending artery Has a proximal concentric 70% stenosis with remaining vessel being widely patent The circumflex artery Nondominant and proximally normal with a 40% stenosis in a small proximal terminal obtuse marginal artery The right coronary artery Massively large dominant and initially proximally thrombosed. Following mechanical aspiration and stenting the right coronary artery is widely patent free of stenosis with wide inline distal flow The MORGAN ventriculogram reveals Ejection fraction of 45% with inferior wall hypokinesis The left ventricular end-diastolic pressure 20 mmHg IMPRESSION Thrombosed proximal dominant right coronary artery with successful mechanical thrombectomy followed by drug-eluting stent deployment restoring flow to LUZ-3 flow Severe stenosis in the proximal LAD followed by stenting reducing the stenosis to 0% Ejection fraction of 45% with regional wall motion abnormality Mildly elevated LVEDP PLAN 1. Brilinta 90 twice daily plus aspirin 81 mg daily 2. LDL goal of 55 to be achieved with high intensity statin 3. Carvedilol once hemodynamically stable 4. JAYDE inhibitor's once hemodynamically stable 5. Avoidance of tobacco products 6. Patient will be started on Xarelto 20 mg daily because of his atrial fibrillation. The duration of the atrial fibrillation is unknown and while it could be secondary to the acute myocardial infarction it would not be appropriate to cardiovert patient at this time. If available GLENNY could be performed and the patient successfully cardioverted. 7. Continuous telemetry monitoring for least 48 hours Patient had been in atrial fibrillation during left heart catheterization but converted to sinus rhythm afterward. On June 12 patient went back into atrial fibrillation and amiodarone drip was started by Dr. Santos. Patient completed 24 hours of IV amiodarone and then transition to oral amiodarone 200 mg twice daily. Xarelto was initiated at presentation when atrial fibrillation was identified and will be continued. Echocardiogram performed the day after admission revealed an EF of 40% Patient had significant elevations in blood pressure during and after left heart catheterization. Medicines were titrated daily to try to achieve goal blood pressure. Patient was placed on bisoprolol 10 mg twice daily, lisinopril 20 mg twice daily, HCTZ 25 mg daily and this resulted in normal to low blood pressures. HCTZ was discontinued. Patient's blood pressure still remained low at times with systolics in the 90s. At discharge lisinopril 20 mg will be prescribed once daily along with bisoprolol 10 twice daily. On the evening of April 15 patient had a fever to 101.7.
[2021-04-17 07:47] VITALS: BP 120/60; PULSE 64; RESP 18; TEMP 37.4; O2SAT 99
[2021-04-17 08:00] VITALS: PULSE 70
--- NOTE | 2021-04-17 08:38 | HMH.CNCARD ---
History of Present Illness Consult date: 04/17/21 Requesting physician: Rizwan Royal Consult reason: chest pain Chief complaint: Inferior STEMI Additional Medical History:: 1. HTN A. Echo, 04/14/2021, 1. Normal left ventricular size, visually estimated ejection fraction 40% with marked hypokinesis involving the basal septum, inferior and inferior basal wall, diastolic parameters are within normal range. 2. Trace mitral and tricuspid regurgitation. 3. No significant pericardial effusion. 4. Inferior vena cava is normal size with less than 50% inspiratory collapse. Electronically signed by : Star Braden MD 04/14/2021 10:27:08 2. CAD A. Inferior STEMI, 04/2021, JUDY to RCA and LAD with EF of 45% (Echo EF 40% with inferior wall hypokinesis). 3. Paroxysmal A. fib, 04/2021 A. Converted with Amiodarone B. CHADS-VASC score of 2 (HTN, ME) with institution of Xarelto therapy. 04/2021 4. Hyperlipidemia 5. Covid pneumonia, 04/2021 History of present illness: 46-year-old male presented to the emergency department yesterday evening after he developed some chest pain and discomfort with associated shortness of breath and diaphoresis while he was playing basketball. Patient had significant EKG changes consistent with STEMI. Patient was taken immediately to the Roller Bearing Inspector and underwent stenting of the right coronary artery and LAD. This morning patient reports some soreness in the chest. Patient also had atrial fibrillation at the time of catheterization. Patient's medical history is significant for 1-1/2 pack/day cigarette use for approximately 20 years. Quit smoking approximately 8 years ago. There is family history of coronary artery disease. Patient has complained of chest pain intermittently for 8 to 9 years and has had prior ischemic work-up. Patient also has a history of GERD for which she has taken proton pump inhibitors in the past. The above per Dr. Royal H&P. Pt was seen by Dr. Santos last week but note not dictated. He received JUDY to RCA and LAD. Reduced LV EF of 45% noted at cath with Echo showing EF of 40%. BP has improved over the weekend with escalation of meds but due to borderline BP, meds have now been reduced. Pt denies any chest pain since the cath and stents. Due to recurrent A. fib over the weekend, Amiodarone was given IV and then converted to PO meds with maintenance of NSR. Pt is feeling well this AM and is scheduled for discharge later today. [facility] History Medical History: Reports:: Hyperlipidemia *Have you ever received a pneumonia vaccine?: No *Have you received a flu vaccine this season?: No - *Social History Last grade of school completed: High school graduate Smoking Status: Current every day smoker Tobacco Type: cigarettes # Packs/Day (cigarettes): 1 Alcohol Intake: never *Occupational Status:: employed *Travel in the last 8 weeks: None Family Hx:: Coronary Artery Disease Meds Home Medications Medication Instructions Recorded Confirmed Type Nicotine Polacrilex [Nicotine Gum 4 mg PO Q4-6H PRN 04/13/21 04/13/21 History 4mg] Omeprazole 20 mg PO DAILY 04/13/21 04/13/21 History Amiodarone HCl [Cordarone 200mg 200 mg PO BID #60 tab 04/17/21 Rx tablet] Aspirin [Aspirin 81mg EC Tab] 81 mg PO DAILY #30 tab 04/17/21 Rx Atorvastatin Calcium [Lipitor 40mg 80 mg PO HS #30 tab 04/17/21 Rx Tablet*] Rivaroxaban [Xarelto 20mg Tablet*] 20 mg PO QPMWITHMEAL 04/17/21 04/17/21 History Ticagrelor [Brilinta 90mg 90 mg PO BID #60 tab 04/17/21 Rx Tablet] bisoproloL fumarate [Bisoprolol 10 mg PO BID #60 tab 04/17/21 Rx Fumarate] lisinopriL [Lisinopril] 20 mg PO DAILY #30 tab 04/17/21 Rx Allergies Allergy/AdvReac Type Severity Reaction Status Date / Time No Known Allergies Allergy Verified 10/14/18 10:10 Exam Vital signs and Labs for Last 24 Hours: Temp Pulse Resp BP Pulse Ox 99.4 F 70 18 120/60 99 04/17/21 07:47 04/17/21 08:00 04/17/21 07
--- NOTE | 2021-04-17 08:40 | HMH.PHACLD ---
Ibrahima Cardoso has received discharge medication counseling on the following medications: PATIENT IS BEING DISCHARGED WITH PRESCRIPTIONS FOR XARELTO 20 MG WITH EVENING MEAL, ASPIRIN 81 MG EC DAILY, BISOPROLOL 10 MG BID, BRILINTA 90 MG BID, AMIODARONE 200 MG BID, LIPITOR 80 MG HS (INCREASED DOSE FROM 10 MG HS), AND LISINOPRIL 20 MG DAILY.
[2021-04-19 09:54] LABS: Acetone <0.010 g/dL (0.000-0.010); Butalbital <1 ug/mL (1-10); Chlordiazepoxide <0.1 ug/mL (0.1-0.9); Diazepam <0.1 ug/mL (0.1-0.9); Ethanol <0.010 g/dL (0.000-0.010); Isopropanol <0.010 g/dL (0.000-0.010); Pentobarbital <1 ug/mL (1-5)
== END 2021-04-17 09:10 | disposition home or self-care (01) | DRG 247 ==
LOC: ER 18:49 → CATHLAB 18:50 → 2ND 19:03
PROVIDERS: Internal Medicine; Admitting Provider Internal Medicine Adolescent Medicine; Emergency Provider Emergency Medicine; PCP Family Medicine; Visit Provider Family Medicine
PROC: 027135Z Dilation of Coronary Artery, Two Arteries with Two Drug-eluting Intraluminal Devices, Percutaneous Approach (ICD-10-PCS; principal; 2021-04-13 19:30)
DX: I21.19 ST elevation (STEMI) myocardial infarction involving other coronary artery of inferior wall (principal); I25.10 Atherosclerotic heart disease of native coronary artery without angina pectoris; K21.9 Gastro-esophageal reflux disease without esophagitis; E78.5 Hyperlipidemia, unspecified; Z87.891 Personal history of nicotine dependence; I10 Essential (primary) hypertension; I48.0 Paroxysmal atrial fibrillation; Z86.16 Personal history of COVID-19
CPT/HCPCS: 71045; 80048; 80053; 80061; 80306; 82962; 84484; 85025; 85347; 92928; 92941; 93005; 93306; 93458; 96365; 96375; 99152; 99153; 99284; C1725; C1769; C1876; C9600; C9606; C9803; J0282; J1644; J2405; J7060; Q9967; U0003; U0005

== ENCOUNTER 2021-04-27 13:53 | Outpatient (RCR) | payer OTHER, SELFPAY | END 2021-04-27 13:55 | disposition home or self-care (01) | LOC: PT 13:53 | PROVIDERS: Visit Provider Internal Medicine | DX: I25.10 Atherosclerotic heart disease of native coronary artery without angina pectoris (principal); Z95.5 Presence of coronary angioplasty implant and graft | CPT/HCPCS: 93798 ==

== ENCOUNTER → 2021-05-10 07:33 | Outpatient (CLI) | payer OTHER, SELFPAY ==
--- NOTE | 2021-05-10 07:38 | CT_ITS ---
FINAL REPORT TECHNIQUE: Axial images were obtained from the lung apex to the mid abdomen by computed tomography. Coronal reformatted images were obtained. This study was performed with techniques to keep radiation doses as low as reasonably achievable, (ALARA). Individualized dose reduction techniques using automated exposure control or adjustment of mA and/or kV according to the patient's size were employed. CLINICAL HISTORY: chest pain off and on since heart attack 4 weeks ago FINDINGS: There is no axillary adenopathy. There is no hilar or mediastinal adenopathy. Heart size is normal. There is no pericardial or pleural effusion. Limited images of the upper abdomen are unremarkable. The lung window images demonstrate mild emphysema. There are mild ground-glass opacities in both lower lobes which is nonspecific and may represent mild edema. There is a 3 mm lateral left upper lobe nodule on image 38. There is calcified granuloma in the right middle lobe. IMPRESSION: Mild ground-glass opacities in both lower lobes, nonspecific and may represent mild edema. Left lung nodule as described. Reviewed, Interpreted and Dictated by Ravi Montero III, MD Transcribed by Flora Muñoz Authenticated by Ravi Montero III, MD on 05/10/2021 08:51:32 AM [facility]
== END ==
PROVIDERS: PCP Family Medicine; Visit Provider Physician Assistant
DX: R06.00 Dyspnea, unspecified (principal); I48.0 Paroxysmal atrial fibrillation; I10 Essential (primary) hypertension; I25.118 Atherosclerotic heart disease of native coronary artery with other forms of angina pectoris; E78.2 Mixed hyperlipidemia; I21.3 ST elevation (STEMI) myocardial infarction of unspecified site; K21.9 Gastro-esophageal reflux disease without esophagitis
CPT/HCPCS: 71250

== ENCOUNTER → 2021-05-22 10:34 | Outpatient (CLI) | payer OTHER, SELFPAY ==
[2021-05-22 17:08] LABS: Amphetamine/Metha Screen,Urine Negative ng/ml (<1000)
[2021-05-22 17:09] LABS: Barbiturates Screen,Urine Negative ng/ml (<200)
[2021-05-22 17:10] LABS: Benzodiazepines Screen,Urine Negative ng/ml (<200); Cannabinoid Screen,Urine Negative ng/ml (<50)
[2021-05-22 17:11] LABS: Cocaine Screen,Urine Negative ng/ml (<300)
[2021-05-22 17:13] LABS: Methadone Screen,Urine Negative ng/ml (<300)
[2021-05-22 17:14] LABS: Opiate Screen,Urine Negative ng/ml (<300); Phencyclidine Screen,Urine Negative ng/ml (<25)
== END ==
PROVIDERS: Visit Provider Physician Assistant
DX: R06.00 Dyspnea, unspecified (principal); I48.0 Paroxysmal atrial fibrillation; I10 Essential (primary) hypertension; I20.9 Angina pectoris, unspecified; I21.3 ST elevation (STEMI) myocardial infarction of unspecified site; I25.118 Atherosclerotic heart disease of native coronary artery with other forms of angina pectoris; R94.31 Abnormal electrocardiogram [ECG] [EKG]; Z79.899 Other long term (current) drug therapy
CPT/HCPCS: 80305

== ENCOUNTER → 2021-05-25 08:48 | Outpatient (CLI) | payer OTHER, SELFPAY ==
[2021-05-25 10:10] LABS: Amphetamine/Metha Screen,Urine Negative ng/ml (<1000); Barbiturates Screen,Urine Negative ng/ml (<200)
[2021-05-25 10:11] LABS: Benzodiazepines Screen,Urine Negative ng/ml (<200); Cannabinoid Screen,Urine Negative ng/ml (<50)
[2021-05-25 10:12] LABS: Cocaine Screen,Urine Negative ng/ml (<300)
[2021-05-25 10:13] LABS: Methadone Screen,Urine Negative ng/ml (<300)
[2021-05-25 10:14] LABS: Opiate Screen,Urine Negative ng/ml (<300)
[2021-05-25 10:15] LABS: Phencyclidine Screen,Urine Negative ng/ml (<25)
== END ==
PROVIDERS: Visit Provider Nurse Practitioner Family
DX: R06.00 Dyspnea, unspecified (principal); F41.9 Anxiety disorder, unspecified; I20.9 Angina pectoris, unspecified; I10 Essential (primary) hypertension; I21.3 ST elevation (STEMI) myocardial infarction of unspecified site; I48.91 Unspecified atrial fibrillation; R94.31 Abnormal electrocardiogram [ECG] [EKG]
CPT/HCPCS: 80305

== ENCOUNTER → 2021-05-29 14:51 | Outpatient (CLI) | payer OTHER, SELFPAY ==
--- NOTE | 2021-05-29 14:52 | CT_ITS ---
FINAL REPORT CLINICAL HISTORY: I21.3 - ST elevation (STEMI) myocardial infarction . lung nodule COMPARISON: May 10, 2021 FINDINGS: Axial images were obtained from the lung apex to the mid abdomen by computed tomography. 1.25 mm axial slices were performed at 10 mm intervals using a high-resolution protocol. Coronal reformatted images were obtained. This study was performed with techniques to keep radiation doses as low as reasonably achievable, (ALARA). Individualized dose reduction techniques using automated exposure control or adjustment of mA and/or kV according to the patient's size were employed. There is no axillary adenopathy. There is no hilar or mediastinal adenopathy. Heart size is normal. There is no pericardial or pleural effusion. Limited images of the upper abdomen are unremarkable. The 3 mm left upper lobe nodule is again seen but less evident on image 26 of series 2. The ground-glass opacity in the lung bases similar to the prior exam. There is no evidence of bronchiectasis. IMPRESSION: Stable 3 mm left upper lobe nodule. No bronchiectasis. Reviewed, Interpreted and Dictated by Jey Zelaya MD Transcribed by Nilson Hathaway Authenticated by Jey Zelaya MD on 05/29/2021 04:27:13 PM [facility]
== END ==
PROVIDERS: PCP Family Medicine; Visit Provider Physician Assistant
DX: R06.00 Dyspnea, unspecified (principal); R07.89 Other chest pain; I25.118 Atherosclerotic heart disease of native coronary artery with other forms of angina pectoris; I20.9 Angina pectoris, unspecified; I21.3 ST elevation (STEMI) myocardial infarction of unspecified site; I10 Essential (primary) hypertension; I48.0 Paroxysmal atrial fibrillation; R94.31 Abnormal electrocardiogram [ECG] [EKG]
CPT/HCPCS: 71250

== ENCOUNTER → 2021-06-05 12:30 | Outpatient (CLI) | payer OTHER, SELFPAY | PROVIDERS: Visit Provider Internal Medicine | DX: Z79.899 Other long term (current) drug therapy (principal) ==

== ENCOUNTER → 2021-07-06 14:55 | Outpatient (CLI) | payer OTHER, SELFPAY | PROVIDERS: PCP Family Medicine; Visit Provider Internal Medicine Pulmonary Disease | DX: R06.00 Dyspnea, unspecified (principal) | CPT/HCPCS: 94070; 95070; J7674 ==

== ENCOUNTER → 2021-08-03 09:13 | Outpatient (CLI) | payer OTHER, SELFPAY ==
--- NOTE | 2021-08-03 | CA_ITS ---
APPROVED REPORT Exam: Exercise Treadmill Technologist: Angelia Rodrigues, Ht: 5 ft 11 in Wt: 196 lbs BSA: 2.09 m2 Medical History Medical History: CAD s/p [place], CAD s/p stent, HTN, Hyperlipidemia Medications: Lisinopril,,,,, Atorvastatin,,,,, Buspirone,,,,, SyMBICORT,,,,, Plavix,,,,, BisOPROLOL,,,,, Ativan,,,,, Dexilant,,,,, RIvaROXABAN,,,,, Cardiac Risk Factors: HTN, Hyperlipidemia Stress Test Details Test: Fly HR Resting HR: 54 bpm Max Heart Rate (APMHR): 176.181699 bpm Max HR Achieved: 131 bpm Target HR (85% APMHR): 149.969925 bpm % of APMHR: 74.43 Recovery HR: 103 bpm BP Resting BP: 136.0/84.0 mmHg Max BP: 202.0/80.0 mmHg Recovery BP: 168.0/86.0 mmHg ECG Resting ECG: sinus madi,st abnormalities inferiorly and laterally Clinical Exercise duration: 10:30 min Highest Stage Achieved: Exercise capacity: 12.8 METs Stress ECG Conclusion exercised 10:30 into stage 4 of fyl protocol. max heart rate 131 bpm which is 74% of pm for age. max bp 202/80. mets = 12.8. test stopped due to soa and fatigue. soa with mild chest tightness. no arrhythmias/ectopy. no significant st-t changes compared to baseline. non-diagnostic stress. blunted hr response on bisoprolol. myoview images reported separately Test Summary REST . . . . . . . Standing REST . . . . . . . Sitting REST 06:10 0.0 0.0 54 . 136/ 84 . . Stage 1 01:00 10.0 1.7 76 . . . . Stage 1 02:00 10.0 1.7 82 . . . . Stage 1 03:00 10.0 1.7 87 . . . . Stage 2 01:00 12.0 2.5 95 . 158/ 84 . . Stage 2 02:00 12.0 2.5 97 . 158/ 84 . . Stage 2 03:00 12.0 2.5 102 . 176/ 85 . . Stage 3 01:00 14.0 3.4 114 . . . . Stage 3 02:00 14.0 3.4 114 . . . . Stage 3 03:00 14.0 3.4 119 . . . . Stage 4 . . . . . . . Myoview Injected Stage 4 01:00 16.0 4.2 123 . . . . Stage 4 01:30 16.0 4.2 131 . . . Stop exercise at 10:30 RECOVERY 01:00 0.0 0.0 106 . 202/ 80 . . RECOVERY 02:00 0.0 0.0 85 . 202/ 80 . . RECOVERY 03:00 0.0 0.0 75 . 168/ 86 . . RECOVERY 04:00 0.0 0.0 78 . 144/ 95 . . RECOVERY 05:00 0.0 0.0 73 . 144/ 95 . . RECOVERY 05:38 0.0 0.0 71 . 139/ 88 . . Electronically signed by : Star Braden MD 08/04/2021 10:06:04
--- NOTE | 2021-08-03 09:43 | NM_ITS ---
APPROVED REPORT Exam: Nuclear Stress Test Indication: chest pain..short of breath..fatigue Patient Location: Outpatient Stress Tech: Funmilayo Rodrigues [place] Tech:SMILEY Padilla RT(R)(N) Ht: 5 ft 11 in Wt: 196 lbs HR: 54 bpm BP: 136/84 mmHg BSA: 2.09 m2 TID: 1.23 BMI: 27.3 History: chest pain..short of breath..fatigue Procedure: Patient exercised on Fly protocol 10:30 minutes and sec, resting heart rate 54 bpm, resting blood pressure 136/84 mmHg, with exercise maximum heart rate achived was 131 bpm which is 74 % of the maximum predicted heart rate and blood pressure was 202/80 mmHg. Test was stopped due to fatigue. Patient denied any complaint of chest pain. Patient has good exercise capacity, achieved 12.8 METs of workload on treadmill, the blood pressure response to exercise was Hypertensive. Electrocardiogram Resting electrocardiogram shows sinus rhythm, with exercise there is less than 1.[address] segment depression noted from the baseline EKG. The EKG portion of the exercise Myoview is nondiagnostic as patient did not achieve the target heart rate. Cardiac Stress and Resting SPECT Images: Cardiac Stress and Resting SPECT images were obtained using technetium 99m Myoview 30.7 mCi stress and 10.28 mCi at rest. Gated SPECT analysis of segmental wall motion and calculation of the ejection fraction also done. Cardiac stress and rest SPECT may show uniform myocardial activity without segmental perfusion abnormality, computer derived ejection fraction is 38% with left ventricular global hypokinesis. Right ventricle is normal size and contractility. Conclusion: 1. The EKG portion of the exercise Myoview is nondiagnostic due to patient not achieving the target heart rate, patient has good exercise capacity achieved 12.8 METs of workload on treadmill, the blood pressure response to exercise was hypertensive, there was no exercise-induced chest discomfort. 2. No scintigraphic evidence of reversible ischemia seen, compared to ejection fraction is 38% with left ventricular global hypokinesis, right ventricle is normal size and contractility. 3. Abnormal exercise Myoview study due to low ejection fraction. Electronically signed by : Star Braden MD 08/04/2021 10:10:25
[2021-08-03 09:59] LABS: Basophils # 0.1 K/mm3 (0-0.2); Basophils % 2.1 % (0.1-2.0); Eosinophils # 0.1 K/mm3 (0.0-0.4); Eosinophils % 0.9 % (0.1-12.0); Hematocrit 44.6 % (42.0-52.0); Hemoglobin 14.8 g/dL (14.1-18.0); Lymphocytes # 2.3 K/mm3 (0.7-4.5); Lymphocytes % 44.7 % (10-50); Mean Corpuscular HGB Conc 33.2 g/dL (31.8-35.4); Mean Corpuscular Hemoglobin 29.9 pg (27.0-31.2); Mean Corpuscular Volume 90.1 fl (80-94); Mean Platelet Volume 7.7 fl (7.4-10.4); Monocytes # 0.3 K/mm3 (0.1-1.0); Monocytes % 6.3 % (1.7-9.3); Neutrophils # 2.4 K/mm3 (1.8-7.8); Neutrophils % 45.9 % (37.0-80.0); Platelet Count 272 K/mm3 (142-424); Red Blood Count 4.95 M/mm3 (4.60-6.20); Red Cell Distribution Width 14.1 % (11.5-17.5); White Blood Count 5.2 K/mm3 (4.8-10.8)
[2021-08-03 10:44] LABS: Anion Gap 14.3 mEq/L (5-15); Blood Urea Nitrogen 14 mg/dl (9-20); Calcium 9.2 mg/dl (8.4-10.2); Carbon Dioxide 29 mmol/L (22.0-30.0); Chloride 101 mmol/L (98-107); Estimated Glomerular Filt Rate 66 ml/min (>60); GFR (African American) 80 ML/MIN (>60); Glucose 100 mg/dl (74-100); Potassium 4.3 mmoL/L (3.5-5.1); Sodium 140 mmol/L (136-145)
--- NOTE | 2021-08-03 11:05 | US_ITS ---
FINAL REPORT CLINICAL HISTORY: numbness, CAD, AR, stent, HTN, HLD FINDINGS: Complete ankle/brachial indices were obtained. The right BRINA is 1.1. The left BRINA is 1.0. IMPRESSION: The ABIs are normal bilaterally. Reviewed, Interpreted and Dictated by Chiquita Girard MD Transcribed by Dawn Preston Authenticated by Chiquita Girard MD on 08/03/2021 02:55:18 PM [facility]
[2021-08-03 11:53] LABS: Hemoglobin A1C 6.2 % (4.0-6.0)
[2021-08-11 02:09] LABS: D001-IgE D pteronyssinus <0.10 kU/L (Class 0); D002-IgE D farinae 0.14 kU/L (Class 0/I); E001-IgE Cat Dander <0.10 kU/L (Class 0); E005-IgE Dog Dander <0.10 kU/L (Class 0); E072-IgE Mouse Urine <0.10 kU/L (Class 0); G002-IgE Bermuda Grass 0.29 kU/L (Class 0/I); G006-IgE Timothy Grass 0.29 kU/L (Class 0/I); I006-IgE Cockroach, German 0.28 kU/L (Class 0/I); Immunoglobulin E, Total 70 IU/mL (6-495); M001-IgE Penicillium chrysogen <0.10 kU/L (Class 0); M002-IgE Cladosporium herbarum <0.10 kU/L (Class 0); M003-IgE Aspergillus fumigatus <0.10 kU/L (Class 0); M006-IgE Alternaria alternata <0.10 kU/L (Class 0); T001-IgE Maple/Box Elder 0.29 kU/L (Class 0/I); T003-IgE Common Silver Birch 0.21 kU/L (Class 0/I); T006-IgE Cedar, Mountain 0.23 kU/L (Class 0/I); T007-IgE Oak, White 0.29 kU/L (Class 0/I); T008-IgE Elm, American 0.26 kU/L (Class 0/I); T010-IgE Walnut 0.31 kU/L (Class 0/I); T011-IgE Maple Leaf Sycamore 0.29 kU/L (Class 0/I); T014-IgE Cottonwood 0.24 kU/L (Class 0/I); T015-IgE Ash, White 0.32 kU/L (Class I); T022-IgE Pecan, Hickory 0.28 kU/L (Class 0/I); T070-IgE White Mulberry 0.21 kU/L (Class 0/I); W001-IgE Ragweed, Short 0.29 kU/L (Class 0/I); W011-IgE Thistle, Russian 0.27 kU/L (Class 0/I); W014-IgE Pigweed, Common 0.24 kU/L (Class 0/I); W018-IgE Sheep Sorrel 0.34 kU/L (Class I)
== END ==
PROVIDERS: Internal Medicine Pulmonary Disease; PCP Family Medicine; Visit Provider Nurse Practitioner Family
DX: R06.00 Dyspnea, unspecified (principal); I25.118 Atherosclerotic heart disease of native coronary artery with other forms of angina pectoris; I10 Essential (primary) hypertension; I21.3 ST elevation (STEMI) myocardial infarction of unspecified site; I48.0 Paroxysmal atrial fibrillation; I73.9 Peripheral vascular disease, unspecified; R20.0 Anesthesia of skin; R94.31 Abnormal electrocardiogram [ECG] [EKG]
CPT/HCPCS: 36415; 78452; 80048; 82785; 83036; 85025; 86003; 93017; 93923; A9502

== ENCOUNTER → 2021-08-11 09:12 | Outpatient (CLI) | payer OTHER, SELFPAY ==
--- NOTE | 2021-08-11 09:12 | CA_ITS ---
APPROVED REPORT EXAM: Limited 2D Echocardiogram Gate Supervisor: Alicia Guajardo RVT Ht: 5 ft 11 in Wt: 196lbs BSA: 2.09 BP: 149/82 mmHg Indications: EVAL EF, EF OF 38% ON STRESS TEST 08/03, EF OF 40% ON ECHO ON 04/13,CP,HTN,HLD,ROYAL,EX SMOKER,A-FIB,CAD,GERD,ABN EKG 2D Dimensions LVOT 2.19 cm (M/F) 1.5-2.5 M-Mode Dimensions RVDd 2.06 cm (0.9-2.6) LA Diam 3.30 cm (1.9-4.0) LVDd 5.51 cm (3.5-5.7) Ao Diam 2.73 cm (2.0-3.7) LVDs 4.20 cm (3.5-5.7) IVSd 0.54 cm (0.6-1.1) PWd 0.80 cm (0.6-1.1) EF (Teich) 46.90% FS 23.80% EDV (Teich) 148.00 mL ESV (Teich) 78.60 mL Conclusion 1. Limited echocardiogram was performed to evaluate left ventricular systolic function. Left ventricle is normal size, estimated ejection fraction 50% with no regional wall motion abnormality. 2. No significant pericardial effusion noted. Electronically signed by : Star Braden MD 08/13/2021 06:21:37
== END ==
PROVIDERS: PCP Family Medicine; Visit Provider Nurse Practitioner Family
DX: R06.09 Other forms of dyspnea (principal); I20.9 Angina pectoris, unspecified
CPT/HCPCS: 93308

== ENCOUNTER → 2022-02-22 11:18 | Outpatient (CLI) | payer OTHER, SELFPAY ==
--- NOTE | 2022-02-22 11:21 | XR_ITS ---
FINAL REPORT CLINICAL HISTORY: cp COMPARISON: 04/13/2021 FINDINGS: Two views of the chest were obtained. The heart size and pulmonary vascularity are within normal limits. The mediastinum is normal. No acute pulmonary abnormality is identified. There is no pneumothorax. The bony thorax is intact. IMPRESSION: No active cardiopulmonary disease. Reviewed, Interpreted and Dictated by Ravi Montero III, MD Transcribed by Flora Muñoz Authenticated and [facility]
== END ==
PROVIDERS: PCP Family Medicine; Visit Provider Nurse Practitioner Family
DX: R07.89 Other chest pain (principal); I48.0 Paroxysmal atrial fibrillation; I25.118 Atherosclerotic heart disease of native coronary artery with other forms of angina pectoris; I10 Essential (primary) hypertension; E78.2 Mixed hyperlipidemia; F41.9 Anxiety disorder, unspecified; K21.9 Gastro-esophageal reflux disease without esophagitis; R94.31 Abnormal electrocardiogram [ECG] [EKG]
CPT/HCPCS: 71046

== ENCOUNTER → 2022-03-17 12:48 | Outpatient (CLI) | payer OTHER, SELFPAY ==
[2022-03-17 13:19] LABS: Coronavirus 19, PCR Not Detected (NotDetected); Influenza A, PCR Not Detected (NotDetected); Influenza B, PCR Not Detected (NotDetected)
[2022-03-17 14:17] LABS: Basophils # 0.1 K/mm3 (0-0.2); Basophils % 0.9 % (0.1-2.0); Eosinophils # 0.2 K/mm3 (0.0-0.4); Eosinophils % 1.6 % (0.1-12.0); Hematocrit 43.8 % (42.0-52.0); Hemoglobin 13.9 g/dL (14.1-18.0); Lymphocytes # 2.3 K/mm3 (0.7-4.5); Lymphocytes % 24.3 % (10-50); Mean Corpuscular HGB Conc 31.8 g/dL (31.8-35.4); Mean Corpuscular Hemoglobin 28.6 pg (27.0-31.2); Mean Corpuscular Volume 89.9 fl (80-94); Mean Platelet Volume 7.8 fl (7.4-10.4); Monocytes # 0.9 K/mm3 (0.1-1.0); Monocytes % 8.8 % (1.7-9.3); Neutrophils # 6.2 K/mm3 (1.8-7.8); Neutrophils % 64.5 % (37.0-80.0); Platelet Count 338 K/mm3 (142-424); Red Blood Count 4.87 M/mm3 (4.60-6.20); Red Cell Distribution Width 13.4 % (11.5-17.5); White Blood Count 9.6 K/mm3 (4.8-10.8)
== END ==
PROVIDERS: PCP Family Medicine; Visit Provider Physician Assistant
DX: Z20.822 Contact with and (suspected) exposure to COVID-19 (principal)
CPT/HCPCS: 36415; 85025; C9803; U0003; U0005

== ENCOUNTER → 2022-06-01 07:50 | Outpatient (CLI) | payer OTHER, SELFPAY ==
--- NOTE | 2022-06-01 | CA_ITS ---
APPROVED REPORT Exam: Pharmacologic Technologist: Farheen Early, Ht: 5 ft 11 in Wt: 198 lbs BSA: 2.10 m2 HR: 57 bpm BP: 129/86 mmHg Rhythm: sinus rhythm Medical History Medical History: Hyperlipidemia Medications: Lisinopril,,,,, Lorazepam,,,,, Metformin,,,,, Atorvastatin,,,,, Buspirone,,,,, SyMBICORT,,,,, CloPIdogrel,,,,, BisOPROLOL Fumarate,,,,, Dexilant,,,,, RIvaROXABAN,,,,, TAdalafil,,,,, Pantroprazole,,,,, Cardiac Risk Factors: Hyperlipidemia, FHX of CAD, Smoking Stress Test Details Test: LEXISCAN HR Resting HR: 64 bpm Max Heart Rate (APMHR): 175 bpm Max HR Achieved: 84 bpm Target HR (85% APMHR): 149 bpm % of APMHR: 48 Recovery HR: 73 bpm BP Resting BP: 129/86 mmHg Max BP: 135/84 mmHg Recovery BP: 116.0/77.0 mmHg ECG Resting ECG: sinus rhythm Clinical Exercise duration: 04:00 min Highest Stage Achieved: Stress ECG Conclusion During lexiscan pt experinced SOA and chest pain with tightness. No arrhythmias noted. <1.5mm ST segment changes. Test Summary REST . . . . . . . Sitting REST 07:26 . . 64 . 129/ 86 . . Stage 1 01:00 . . 69 . . . . Stage 2 01:00 . . 82 . 135/ 84 . . Stage 3 01:00 . . 69 . 127/ 81 . . Stage 4 01:00 . . 65 . 119/ 75 . Stop exercise at 04:00 RECOVERY 01:00 . . 73 . . . . RECOVERY 02:00 . . 60 . 116/ 77 . . RECOVERY 02:17 . . 70 . 116/ 77 . . Electronically signed by : Star Braden MD 06/01/2022 15:26:36
--- NOTE | 2022-06-01 07:50 | NM_ITS ---
APPROVED REPORT Exam: Nuclear Stress Test Indication: chest pain..fatigue..palpitations Patient Location: Outpatient Stress Tech: Farheen PASCUAL Tech:Catie RomanSMILEY RT(R)(N) Ht: 5 ft 11 in Wt: 198 lbs HR: 64 bpm BP: 129/86 mmHg BSA: 2.10 m2 TID: 1.21 BMI: 27.6 History: chest pain..fatigue..palpitations Procedure: Patient received 0.4 mg of intravenous Lexiscan, resting heart rate 64 bpm, resting blood pressure 129/86 mmHg, with Lexiscan maximum heart rate achieved was 84 bpm which is Less than 85 % of the maximum predicted heart rate and blood pressure was 135/84 mmHg. With Lexiscan, patient denied any complaint of chest pain. Electrocardiogram Resting electrocardiogram shows sinus rhythm, with Lexiscan there is less than 1.[address] segment depression noted from the baseline EKG. The EKG portion of the Lexiscan is nondiagnostic. Cardiac Stress and Resting SPECT Images: Cardiac Stress and Resting SPECT images were obtained using technetium 99m Myoview 29.6 mCi stress and 10.40 mCi at rest. Gated SPECT analysis of segmental wall motion and calculation of the ejection fraction also done. Prone images were also obtained. Cardiac prone images show uniform myocardial activity without segmental perfusion abnormality, computer derived ejection fraction is 41% with no regional wall motion abnormality, right ventricle is normal size and contractility. Conclusion: 1. The EKG portion of the Lexiscan is nondiagnostic. 2. No scintigraphic evidence of reversible ischemia seen, computer derived ejection fraction is 41% with no regional wall motion abnormality, right ventricle is normal size and contractility. 3. Normal myocardial perfusion imaging except low ejection fraction. Electronically signed by : Star Braden MD 06/01/2022 15:28:37
--- NOTE | 2022-06-01 08:18 | CA_ITS ---
APPROVED REPORT EXAM: Comprehensive 2D, Doppler, and color-flow Echocardiogram Mortgage Clerk: Erika Larios RDCS Ht: 5 ft 11 in Wt: 196lbs BSA: 2.09 BP: 134/79 mmHg Indications: CP,CAD 2D Dimensions LVOT 1.71 cm (M/F) 1.5-2.5 M-Mode Dimensions RVDd 2.24 cm (0.9-2.6) LA Diam 2.86 cm (1.9-4.0) LVDd 5.57 cm (3.5-5.7) Ao Diam 2.91 cm (2.0-3.7) LVDs 4.31 cm (3.5-5.7) IVSd 0.61 cm (0.6-1.1) PWd 0.76 cm (0.6-1.1) EF (Teich) 45.00% FS 22.60% EDV (Teich) 151.80 mL ESV (Teich) 83.50 mL LV Diastology E Decel Time 163.00 (160-240 msec) E/A Ratio 1.1 MED E' 8.90 (< 7 cm/sec) E'/MED E' Ratio 7.75 (>14) LAT E' 9.10 (<10 cm/sec) E/LAT E' Ratio 7.58 (>14) Mitral Valve MV E Max Rubio. 69.00 (40-130 cm/s) MV A Velocity 61.00 (40-130 cm/s) E/A Ratio 1.13 MV Decel. Time 163.00 (160-240 ms) MV PHT 48.00 ms Left Ventricle Left atrium is normal size left ventricle is normal size, estimated ejection fraction 55% with no regional wall motion abnormality, diastolic parameters are within normal range. Right Ventricle Right atrium and right ventricular normal size and contractility. Aortic Valve Aortic valve is grossly normal there is no aortic stenosis or aortic insufficiency. Mitral Valve Mitral valve is grossly normal, there is no significant mitral regurgitation. Tricuspid Valve Tricuspid grossly normal, there is no significant tricuspid regurgitation. Pulmonic Valve Pulmonic valve is poorly visualized. Great Vessels Aortic root is normal size. Inferior vena cava normal size with normal inspiratory collapse. Pericardium No significant pericardial effusion noted. Conclusion 1. Normal left ventricular size preserved left ventricular systolic function, estimated ejection fraction 55% with no regional wall motion abnormality, diastolic parameters are within normal range. 2. No significant pericardial effusion noted. 3. Inferior vena cava is normal size with normal inspiratory collapse. Electronically signed by : Star Braden MD 06/01/2022 10:32:35
== END ==
PROVIDERS: PCP Family Medicine; Visit Provider Nurse Practitioner Family
DX: R06.00 Dyspnea, unspecified (principal); R07.89 Other chest pain; I48.0 Paroxysmal atrial fibrillation; I25.118 Atherosclerotic heart disease of native coronary artery with other forms of angina pectoris; I10 Essential (primary) hypertension; E78.2 Mixed hyperlipidemia; K21.9 Gastro-esophageal reflux disease without esophagitis; N52.2 Drug-induced erectile dysfunction; R94.31 Abnormal electrocardiogram [ECG] [EKG]
CPT/HCPCS: 78452; 93017; 93306; A9502; J2785

== ENCOUNTER → 2023-01-25 08:10 | Outpatient (CLI) | payer OTHER, SELFPAY ==
[2023-01-25 08:24] LABS: Basophils % 0.4 % (0.1-2.0); Eosinophils # 0.1 K/mm3 (0.0-0.4); Eosinophils % 1.1 % (0.1-12.0); Hematocrit 47.2 % (42.0-52.0); Hemoglobin 15.8 g/dL (14.1-18.0); Lymphocytes # 2.5 K/mm3 (0.7-4.5); Mean Corpuscular HGB Conc 33.5 g/dL (31.8-35.4); Mean Corpuscular Hemoglobin 29.8 pg (27.0-31.2); Mean Platelet Volume 7.7 fl (7.4-10.4); Monocytes # 0.4 K/mm3 (0.1-1.0); Monocytes % 6.3 % (1.7-9.3); Neutrophils # 3.5 K/mm3 (1.8-7.8); Neutrophils % 53.1 % (37.0-80.0); Platelet Count 285 K/mm3 (142-424); Red Blood Count 5.31 M/mm3 (4.60-6.20); Red Cell Distribution Width 13.6 % (11.5-17.5); White Blood Count 6.5 K/mm3 (4.8-10.8)
[2023-01-25 09:04] LABS: Alanine Aminotransferase 43 U/L (12-78); Albumin Level 4.5 g/dl (3.5-5.0); Alkaline Phosphatase 95 U/L (38-126); Anion Gap 10.4 mEq/L (5-15); Aspartate Amino Transferase 31 U/L (17-59); Bilirubin,Direct 0.1 mg/dl (0.0-0.4); Bilirubin,Indirect 0.3 mg/dL (0.0-0.9); Bilirubin,Total 0.4 mg/dl (0.2-1.3); Bilirubin,Unconjugated 0.3 mg/dL (0.0-1.1); Blood Urea Nitrogen 15 mg/dl (9-20); Calcium 9.3 mg/dl (8.4-10.2); Carbon Dioxide 31 mmol/L (22.0-30.0); Chloride 103 mmol/L (98-107); Chol/HDL Ratio 3.2 (1-3.5); Cholesterol 112 mg/dl (140-200); Estimated Glomerular Filt Rate 65 ml/min (>60); GFR (African American) 79 ML/MIN (>60); Glucose 110 mg/dl (74-100); HDL Cholesterol 35 mg/dl (40-60); Potassium 4.4 mmoL/L (3.5-5.1); Sodium 140 mmol/L (136-145); Total Protein,Serum 7.2 g/dl (6.3-8.2); Triglycerides 167 mg/dl (30-150); VLDL Cholesterol 33 mg/dL (0-40)
[2023-01-25 09:16] LABS: Direct LDL Cholesterol < 30.00 mg/dL (100-129)
[2023-01-25 09:22] LABS: Free T4 (Free Thyroxine) 1.02 ng/dl (0.78-2.19)
[2023-01-25 09:35] LABS: Thyroid Stimulating Hormone 2.27 uIU/mL (0.465-4.68)
[2023-01-25 12:12] LABS: Hemoglobin A1C 6.3 % (4.0-6.0)
== END ==
PROVIDERS: PCP Family Medicine; Visit Provider Physician Assistant
DX: I25.10 Atherosclerotic heart disease of native coronary artery without angina pectoris (principal); I11.9 Hypertensive heart disease without heart failure; I48.91 Unspecified atrial fibrillation; R06.00 Dyspnea, unspecified; R07.9 Chest pain, unspecified; E78.5 Hyperlipidemia, unspecified; K21.9 Gastro-esophageal reflux disease without esophagitis; N52.9 Male erectile dysfunction, unspecified; Z13.1 Encounter for screening for diabetes mellitus; Z87.891 Personal history of nicotine dependence
CPT/HCPCS: 36415; 80048; 80061; 80076; 83036; 83735; 84439; 84443; 85025

== ENCOUNTER 2023-10-03 10:38 | Outpatient (CLI) | payer OTHER, SELFPAY | END 2023-10-03 23:59 | disposition home or self-care (01) | LOC: RT 10:38 | PROVIDERS: PCP Family Medicine; Visit Provider Nurse Practitioner Family | DX: R42 Dizziness and giddiness (principal) | CPT/HCPCS: 93270 ==

== ENCOUNTER 2023-10-07 07:00 | Outpatient (CLI) | payer OTHER, SELFPAY ==
[2023-10-07 08:00] LABS: Basophils # 0.1 K/mm3 (0-0.2); Eosinophils # 0.1 K/mm3 (0.0-0.4); Hematocrit 48.4 % (42.0-52.0); Hemoglobin 15.3 g/dL (14.1-18.0); Lymphocytes # 2.2 K/mm3 (0.7-4.5); Lymphocytes % 43.2 % (10-50); Mean Corpuscular HGB Conc 31.6 g/dL (31.8-35.4); Mean Corpuscular Hemoglobin 28.5 pg (27.0-31.2); Mean Corpuscular Volume 89.9 fl (80-94); Mean Platelet Volume 7.7 fl (7.4-10.4); Monocytes # 0.4 K/mm3 (0.1-1.0); Monocytes % 6.9 % (1.7-9.3); Neutrophils # 2.4 K/mm3 (1.8-7.8); Neutrophils % 47.9 % (37.0-80.0); Platelet Count 276 K/mm3 (142-424); Red Blood Count 5.38 M/mm3 (4.60-6.20); Red Cell Distribution Width 14.2 % (11.5-17.5); White Blood Count 5.1 K/mm3 (4.8-10.8)
[2023-10-07 08:25] LABS: Alanine Aminotransferase 24 U/L (12-78); Albumin Level 4.2 g/dl (3.5-5.0); Alkaline Phosphatase 66 U/L (38-126); Anion Gap 11.6 mEq/L (5-15); Aspartate Amino Transferase 22 U/L (17-59); Bilirubin,Indirect 0.6 mg/dL (0.0-0.9); Bilirubin,Total 0.6 mg/dl (0.2-1.3); Bilirubin,Unconjugated 0.5 mg/dL (0.0-1.1); Blood Urea Nitrogen 18 mg/dl (9-20); Calcium 9.9 mg/dl (8.4-10.2); Carbon Dioxide 30 mmol/L (22.0-30.0); Chloride 104 mmol/L (98-107); Chol/HDL Ratio 2.5 (1-3.5); Cholesterol 119 mg/dl (140-200); Estimated Glomerular Filt Rate 72 ml/min (>60); GFR (African American) 87 ML/MIN (>60); Glucose 104 mg/dl (74-100); HDL Cholesterol 48 mg/dl (40-60); Potassium 4.6 mmoL/L (3.5-5.1); Sodium 141 mmol/L (136-145); Total Protein,Serum 7.1 g/dl (6.3-8.2); Triglycerides 161 mg/dl (30-150); VLDL Cholesterol 32 mg/dL (0-40)
[2023-10-07 08:41] LABS: Free T4 (Free Thyroxine) 1.03 ng/dl (0.78-2.19)
[2023-10-07 08:48] LABS: Direct LDL Cholesterol < 30.00 mg/dL (100-129)
[2023-10-07 08:56] LABS: Thyroid Stimulating Hormone 2.09 uIU/mL (0.465-4.68)
[2023-10-07 09:25] LABS: Hemoglobin A1C 5.9 % (4.0-6.0)
== END 2023-10-07 23:59 | disposition home or self-care (01) ==
LOC: LAB 07:01
PROVIDERS: PCP Family Medicine; Visit Provider Nurse Practitioner Family
DX: I10 Essential (primary) hypertension (principal); I48.0 Paroxysmal atrial fibrillation; N52.2 Drug-induced erectile dysfunction; K21.9 Gastro-esophageal reflux disease without esophagitis; E78.2 Mixed hyperlipidemia; I25.118 Atherosclerotic heart disease of native coronary artery with other forms of angina pectoris; R42 Dizziness and giddiness; R06.00 Dyspnea, unspecified; I11.9 Hypertensive heart disease without heart failure
CPT/HCPCS: 36415; 80048; 80061; 80076; 83036; 84439; 84443; 85025

== ENCOUNTER 2023-10-08 08:03 | Outpatient (CLI) | payer OTHER, SELFPAY ==
--- NOTE | 2023-10-08 08:03 | CA_ITS ---
FINAL REPORT TECHNIQUE: Real-time imaging was performed of the extracranial carotid arteries in transverse and longitudinal planes, with color duplex evaluation of blood flow velocity. Spectral analysis was performed. The cervical vertebral arteries were also examined. CLINICAL HISTORY: dizziness, HTN COMPARISON: None FINDINGS: NASCET technique is utilized for stenosis evaluation. Right carotid system (centimeters/second): CCA: 86 ICA: 89 ECA: 71 Vertebral artery: Antegrade ICA/CCA ratio: 1.23 Mild plaque is identified at the bifurcation. Left carotid system (centimeters/second): CCA: 134 ICA: 96 ECA: 85 Vertebral artery: Antegrade ICA/CCA ratio: 1 Mild plaque is identified at the bifurcation. IMPRESSION: Less than 50% right ICA stenosis. Less than 50% left ICA stenosis. Antegrade flow bilateral vertebral arteries. Reviewed, Interpreted and Dictated by Jey Zelaya MD Transcribed by Mily Carmona Authenticated and [facility]
--- NOTE | 2023-10-08 08:03 | CA_ITS ---
APPROVED REPORT EXAM: Comprehensive 2D, Doppler, and color-flow Echocardiogram Shotblaster: Enriqueta Dunham, RCS, RVS Ht: 5 ft 11 in Wt: 187lbs BSA: 2.05 BP: 131/74 mmHg Indications: CP, HTN, CAD, Afib, GERD, Dizziness 2D Dimensions IVSd 0.97 cm LVEF (Visual) 56.20 % PWd 0.91 cm LA Volume 35.60 mL LVDd 4.64 cm LA Volume Index 17.913433 mL/m2 (M/F) 16-34 LVDs 3.28 cm EF AP4 64.70 % Left Atrium 4.34 cm GL Strain -25.3 % RVID Base (AP4) 3.37 cm (M/F) 2.5-4.1 LVOT 2.12 cm (M/F) 1.5-2.5 M-Mode Dimensions RVDd 1.48 cm (0.9-2.6) LVDd 4.64 cm (3.5-5.7) Ao Diam 2.72 cm (2.0-3.7) LVDs 3.86 cm (3.5-5.7) IVSd 1.01 cm (0.6-1.1) PWd 0.87 cm (0.6-1.1) EF (Teich) 55.80% EPSs 0.77 cm FS 29.37% EDV (Teich) 145.60 mL TAPSE 1.83 (<1.7) ESV (Teich) 64.30 mL LV Diastology E Decel Time 175 (160-240 msec) E/A Ratio 1.34 MED E' 8.8 (>= 7 cm/sec) MED A' 7.90 cm/s E'/MED E' Ratio 8.17 (<= 14) LAT E' 13.2 (>= 10 cm/sec) LAT A' 7.30 cm/s E/LAT E' Ratio 5.45 (<= 14) Aortic Valve LVOT Max 72.0 (70-110 cm/s) TRACEE Index 0.91 cm2/m2 LVOT VTI 14.30 cm AoV Peak Rubio. 133.0 (50-130 cm/s) AO Mean GR. 3.60 (<5 mmHg) AO VTI 27.0 (18-25 cm) TRACEE (VTI) 1.87 (2.5-4.5 cm2) Mitral Valve MV E Max Rubio. 72.0 (40-130 cm/s) MV A Velocity 54.0 (40-130 cm/s) E/A Ratio 1.34 MV Decel. Time 175 (160-240 ms) Pulmonary Valve WV End VMAX 134.0 cm/s Tricuspid Valve TR P. Velocity 271.00 cm/s RAP Estimate 10.00 mmHg RVSP 39.30 mmHg Left Ventricle The left ventricle is normal size. The left ventricular systolic function is normal. The left ventricular ejection fraction is within the normal range. There is normal left ventricular wall thickness. There is normal LV segmental wall motion. Diastolic function is indeterminate. LVEF is 55%. Right Ventricle The right ventricle is normal size. The right ventricular systolic function is normal. Atria The left atrium size is normal. The right atrium size is normal. There is no Doppler evidence of interatrial shunt. Aortic Valve The aortic valve opens well. There is no aortic valvular stenosis. No aortic regurgitation is present. Mitral Valve The mitral valve is normal in structure. No evidence of mitral valve stenosis. Trace mitral regurgitation. Tricuspid Valve The tricuspid valve leaflets are thin and pliable. Trace tricuspid regurgitation. RVSP is 25-30 mmHg. Pulmonic Valve The pulmonary valve is normal in structure. Trace pulmonic regurgitation. Great Vessels The aortic root is normal in size. The ascending aorta is normal in size. IVC is normal in size and collapses >50% with inspiration. Pericardium There is no pericardial effusion. Other Information Study Quality: Adequate Conclusion Normal biventricular systolic function. No significant valvular stenosis or regurgitation. Electronically signed by : Chey Leigh MD 10/08/2023 11:34:03
== END 2023-10-08 23:59 | disposition home or self-care (01) ==
LOC: RT 08:03
PROVIDERS: PCP Family Medicine; Visit Provider Nurse Practitioner Family
DX: I48.0 Paroxysmal atrial fibrillation (principal); R09.89 Other specified symptoms and signs involving the circulatory and respiratory systems; R42 Dizziness and giddiness; I11.9 Hypertensive heart disease without heart failure; I25.118 Atherosclerotic heart disease of native coronary artery with other forms of angina pectoris
CPT/HCPCS: 93306; 93880

== ENCOUNTER 2024-10-19 14:10 | Outpatient (CLI) | payer OTHER, SELFPAY ==
--- OUTSIDE RECORDS SUMMARY | 2024-10-19 14:24 | XMS_ITS | Clinical Summary ---
Author Organization [facility] Address [address] [place] [address] Care Team Providers Care [employer]borne [employer] Name Role Phone Carlos Quinteros MD Primary Care Provider [phone] Medications Sod Picosulfate-Mag Ox-Cit Acd 10-3.5-12 MG-GM -GM/160ML solutionIndicat ions:Screening for colon cancer Take 160 mL by mouth Take As Directed for 2 doses. 320 mL 01/25/2021 Active Social History Tobacco Use Types Packs/Day Years Used Date Smoking Tobacco: Never Assessed Abuse Screen Answer Date Recorded Unsafe at Home or Work/School Not on file Feels Threatened by Someone? Not on file Does Anyone Keep You from Co ntacting Others or Doint Things Outside the Home? Not on file 12/21/2022 Physical Sign of Abuse Present Not on file 1 Housing Stability Answer Date Recorded Current Living Arrangements Not on file 12/09 Potentially Unsafe Housing Conditions Not on dipesh e 12/21/2022 Family and Community Support Answer Ramirez e Recorded Help with Day-to-Day Activities Not on file 12/21/2022 Lonely or Isolated Not on file 12/21/2022 Employment Answer Date Recorded Do you want help finding or keeping work or a clarisa b? Not on file 12/21/2022 Disabilities Answer Date Recorded Concentrating, Remembering, or Making Decisions Difficulty Not on file 12/21/2022 Doing Errands Independently Difficulty Not on fi le 12/21/2022 Education Answer Date Recorded Help with school or training? Not on file Preferred Language Not on file 12/21/2022 Sex and Gender Information Value Date Recorded Sex Assigned at Not on file Legal Sex Male 10:10 AM EST Gender Identity Not on file Sexual Orientation Not on file Plan of Treatment Health Maintenance Due Date Last Done Comments TDAP/TD VACCINES (2 - Tdap) 05/12/2006 05/12/1996 ANNUAL PHYSICAL 01/18/2021 HEPATITIS C SCREENING 01/18/2021 COLOGUARD 2022 COLON CANCER SCREENING 5 YEA R SIGMOIDOSCOPY [address] COLONOGRAPHY 2022 FECAL OCCULT BLOOD TEST 2022 FIT Testing (1 year) 2022 COVID-19 Vaccine ( - 2023-2 5 season) 2023 INFLUENZA VACCINE 12/09/2024 COLONOSCOPY 02/23/2031 02/23/2021 COLORECTAL CANCER SCREENING 02/23/2031 Pneumococcal Vaccine 0-49 Aged Out No longer eligible based on patient's age to complete this topic Procedures Procedure Name Priority Date/Time Associated Diagnosis Comments SCANNED - COLONOSCOPY 02/23/2021 from Last 3 Months or Most Recently Relevant to Health Maintenance Results * SCANNED - COLONOSCOPY (02/23/2021) Vinicio Becerra MD CHART REVIEW TABS Final Res ult from Last 3 Months or Most Recently Relevant to Health Maintenance Insurance [employer] [facility] Care Teams [employer] Relationship Specialty Start Date End Date Carlos Quinteros MD [address] [place] [address] PCP - General Family Medicine 01/18/21
[2024-10-19 15:04] LABS: Hematocrit 46.3 % (42.0-52.0); Hemoglobin 15.1 g/dL (14.1-18.0); Immature Granulocytes % 0 %; Mean Corpuscular HGB Conc 32.6 g/dL (31.8-35.4); Mean Corpuscular Hemoglobin 28.5 pg (27.0-31.2); Mean Corpuscular Volume 87.5 fl (80-94); Nucleated Red Blood Cells % 0 %; Platelet Count 290 K/mm3 (142-424); Red Blood Count 5.29 M/mm3 (4.60-6.20); Red Cell Distribution Width-SD 42.9 fL; White Blood Count 4.4 K/mm3 (4.8-10.8)
[2024-10-19 15:44] LABS: Alanine Aminotransferase 28 U/L (12-78); Albumin Level 4.8 g/dl (3.5-5.0); Alkaline Phosphatase 70 U/L (38-126); Anion Gap 15.4 mEq/L (5-15); Aspartate Amino Transferase 29 U/L (17-59); Bilirubin,Direct 0.1 mg/dl (0.0-0.4); Bilirubin,Indirect 0.6 mg/dL (0.0-0.9); Bilirubin,Total 0.7 mg/dl (0.2-1.3); Bilirubin,Unconjugated 0.6 mg/dL (0.0-1.1); Blood Urea Nitrogen 9 mg/dl (9-20); Calcium 9.6 mg/dl (8.4-10.2); Carbon Dioxide 25 mmol/L (22.0-30.0); Chloride 102 mmol/L (98-107); Cholesterol 96 mg/dl (140-200); Creatinine,Serum 1.00 mg/dl (0.66-1.25); Estimated Glomerular Filt Rate 80 ml/min (>60); GFR (African American) 97 ML/MIN (>60); Glucose 128 mg/dl (74-100); HDL Cholesterol 43 mg/dl (40-60); Magnesium 1.8 mg/dl (1.6-2.3); Potassium 4.4 mmoL/L (3.5-5.1); Sodium 138 mmol/L (136-145); Total Protein,Serum 7.3 g/dl (6.3-8.2); Triglycerides 97 mg/dl (30-150)
[2024-10-19 15:58] LABS: Free T4 (Free Thyroxine) 1.09 ng/dl (0.78-2.19)
[2024-10-19 16:16] LABS: Prostate Specific Ag, Diagnost 0.571 ng/ml (0.0-4.0); Thyroid Stimulating Hormone 0.89 uIU/mL (0.465-4.68)
== END 2024-10-19 23:59 | disposition home or self-care (01) ==
LOC: LAB 14:11
PROVIDERS: PCP Family Medicine; Visit Provider Nurse Practitioner Family
DX: I25.118 Atherosclerotic heart disease of native coronary artery with other forms of angina pectoris (principal); Z12.5 Encounter for screening for malignant neoplasm of prostate; I10 Essential (primary) hypertension; I48.0 Paroxysmal atrial fibrillation; N52.2 Drug-induced erectile dysfunction
CPT/HCPCS: 36415; 80048; 80061; 80076; 83735; 84153; 84439; 84443; 85025

== ENCOUNTER 2024-10-29 06:10 | Outpatient (CLI) | payer OTHER, SELFPAY ==
--- OUTSIDE RECORDS SUMMARY | 2023-10-10 05:15 | XMS_ITS ---
[facility] Address [address] [place] [id number] Care Team Providers Care Investigator Name Role Phone Brittany Marcos Unavailable [phone] Allergies No Known Allergies REASON FOR VISIT med checkup Medications Medication SIG (Take, Route, Frequency, Duration) Notes Start Date End Date Status Farxiga 10 MG 1 tablet Orally Once a day; Duration: 90 days 10/10/2023 Active LORazepam 1 MG 1 tab(s) orally 2 ti mes a day Not-Taking Meclizine HCl 25 MG 1 tablet as needed Orally Three times a day Active Pantoprazole Sodium 40 MG 1 tab(s) orall y once a day; Duration: 30 day(s) Active Bisoprolol Fumarate 5 MG 1 tab(s) orally once a day Active Clopidogrel Bisulfate 75 MG 1 tab(s) orally once a day Active Lisinopril 20 MG 1 tab(s) orally Two times a day Active Xarelto 20 MG 1 tab(s) orally once a day (in the evening) Active Atorvastatin Calcium 80 mg 1 tablet Orally Once a day at bedtime Active Tadalafil 5 MG 1 tab(s) orally once a day Not-Taking Farxiga 10 MG 1 tablet Orally Once a day; Duration: 90 days Active Nicotine Polacrilex 4 mg chew 1 piece of gum EVERY 2 HOURS NEEDED DIRECTED; Duration: 10 Active Vital Signs Blood pressure systolic 118 mm Hg 10/10/19 24 Blood pressure diastolic 70 mm Hg 024 Heart Rate 67 /min 10/10/2023 Height 71 in 10/10/2023 Weight 190.8 lbs 10/10/2023 BMI 26.61 kg/m2 10/10/2023 Encounters Encounter Location Date Provider Diagnosis [facility] [address] [place] [id number] 10/10/2023 Brittany Marcos ASCVD (arteriosclero tic cardiovascular disease) I25.10 ; Prediabetes R73.09 ; Ischemic cardiomyopathy I25.5 and HBP (high blood pressure) I10 Assessments Encounter Date Diagnosis (ICD Code) Assessment Notes Treatment Notes Treatment Clinical Notes Section Notes 10/10/2023 ASCVD (arteriosclerotic cardiovascular disease) (ICD-10 - I25.10) 10/10/2023 Prediabetes (ICD-10 - R73.09) 10/10/2023 Ischemic cardiomyopathy (ICD-10 - I25.5) 10/10/2023 HBP (high blood pressure) (ICD-10 - I10) Plan Of Treatment Medication Medication Name Sig Start Date Stop Date Notes Farxiga 10 MG 1 tablet Orally Once a day; Duration: 90 days 10/10/2023 FARXIGA 10 mg 1 tab(s) orally once a day Bisoprolol Fumarate 5 MG 1 tab(s) orally once a day Clopidogrel Bisulfate 75 MG 1 tab(s) orally once a day Lisinopril 20 MG 1 tab(s) orally Two times a day Xarelto 20 MG 1 tab(s) orally once a day (in the evening) Atorvastatin Calcium 80 mg 1 tablet Oral ly Once a day at bedtime Next Appt Details Follow Up: 6 Months, Reason: Progress Notes * JEAN FRANKLINDOB: 8 (49 yo M)Acc No.[id number]:10/10/2023 Progress Notes Patient: FRANKLIN PRITCHETT Provider: Brittany Marcos M.D. :1975 A ge:48 Y S ex:Male Date:10/10/2023 Address:[address] [place] [address] [id number] Subjective: * Chief Complaints: * 1 . Med checkup. * HPI: C ardiology: He comes in today for scheduled checkup. He continues to follow with cardiology and had a recent blood work (see copy in chart). He has had no change in his medical regimen. 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 He admits that he likely does not hydrate well. * ROS: D ERMATOLOGY: no R javier. n o H dominic. G ASTROENTEROLOGY: no N ausea. n o V omiting. n o D iarrhea.? U ROLOGY: no D ifficulty urinating. n o B lood in urine. n o F requent urination. * Medical History: A SCVD - s/p STEMI, Hypertension, Hyperlipidemia, Paroxysmal A-fib, Pre-diabetes. * Surgical History: C olonoscopy 2020, Endoscopy , [facility] with Stent Placement x 3 - Dr. Santos 04/2021. * Hospitalization/Major Diagno stic Procedure: H eart Attack and Covid 04/2021. * Family History: M other: diagnosed with Heart Disease. Aunt- diabetes Uncle- Hypertension and Stroke Cousins- Cancer. * Social History: C URRENT TOBACCO USE: No . C affeine: yes, frequency:. Alcohol: no. * Medications: T aking Lisinopril 20 MG Tablet 1 tab(s) orally Two times a day , Taking Clopidogrel Bisulfate 75 MG Tablet 1 tab(s) orally once a day , Taking Bisoprolol Fumarate 5 MG Tablet 1 tab(s) orally once a day , Taking Pantoprazole Sodium 40 MG Tablet Delayed Release 1 tab(s) orally once a day , Taking Meclizine HCl 25 MG Tablet 1 tablet as needed Orally Three times a day , Taking Xarelto 20 MG Tablet 1 tab(s) orally once a day (in the evening) , Taking Farxiga 10 MG Tablet 1 tablet Orally Once a day , Taking Atorvastatin Calcium 80 mg Tablet 1 tablet Orally Once a day at bedtime , Taking Nicotine Polacrilex 4 mg Gum chew 1 piece of gum EVERY 2 HOURS NEEDED DIRECTED , Not-Taking LORazepam 1 MG Tablet 1 tab(s) orally 2 times a day , Not-Taking Tadalafil 5 MG Tablet 1 tab(s) orally once a day , Medication List reviewed and reconciled with the patient * Allergies: N .K.D.A. Objective: * Vitals: W t:190.8, Temp:98.4, BP:118/70, HR:67, Nurse:CLOVER, Ht: 71, BMI:26.61. * Examination: C ardiology: General Appearance: p leasant, NAD. C arotid upstroke:?normal, no bruits. H eart sounds: R RR, normal S1, S2. M urmur, click , gallop:?none. L ungs: c lear, no rales or wheezes. A bdomen: p ositive BS, soft, nontender. E xtremities: n o leg edema. Assessment: * Assessment: 1. P rediabetes - R73.09 (Primary) 2 . A SCVD (arteriosclerotic cardiovascular disease) - I25.10 3 . I schemic cardiomyopathy - I25.5 4 .?HBP (high blood pressure) - I10 Plan: * Treatment: 2. A SCVD (arteriosclerotic cardiovascular disease) Continue Clopidogrel Bisulfate Tablet, 75 MG, 1 tab(s), orally, once a day; C ontinue Atorvastatin Calcium Tablet, 80 mg, 1 tablet, Orally, Once a day at bedtime. 3. I schemic cardiomyopathy Continue Bisoprolol Fumarate Tablet, 5 MG, 1 tab(s), orally, once a day; C ontinue Xarelto Tablet, 20 MG, 1 tab(s), orally, once a day (in the evening). 4. H BP (high blood pressure) Continue Lisinopril Tablet, 20 MG, 1 tab(s), orally, Two times a day. * Follow Up: 6 Months * Images: Billing Information: * Visit Code: 06049 Office Visit, Est Pt., Level 3. * Procedure Codes: * Electronic signature of Brittany Marcos MD on 10/29/2024 at 06:12 AM EDT Sign off status: Pending * Provider: Brittany Marcos M.D. Date: 10/10/2023 Generated for Nico vinson/Felipe/Shannan on: 10/29/2024 06:12 AM EDT History and Physical Notes * Examination Category Sub-Category Detail Notes Category Not es Cardiology Lungs: clear, no rales or wheezes Heart sounds: RRR, normal S1, S2 Abdomen: positive BS, soft, n ontender Carotid upstroke: normal, no bruits Extremities: no leg edema Murmur, click , gallop: none General Appearance: pleasant, NAD
--- OUTSIDE RECORDS SUMMARY | 2024-03-12 07:45 | XMS_ITS ---
Author Organization [facility] Address [address] [place] [id number] Care Team Providers Care Family Services Manager Name Role Phone Brittany Marcos Unavailable [phone] Allergies No Known Allergies Results Component Value Reference Range Notes CBC Fingerstick (in house) Reviewed date:03/12/2024 01:18:51 PM Interpretation: Performing Lab: Notes/Report: wbc 5.6 3.5 - 10 lym 34.2% 15 - 50 mid 8.2% 2 - 15 gran 5.19 35 - 80 rbc 14.6 3.5 - 5.5 hgb 14.6 11.5 - 16.5 hct 46.1 35 - 55 mcv 88.8 75 - 100 mch 28.2 25 - 35 mchc 31.8 31 - 38 plat 247 100 - 400 REASON FOR VISIT fever, chills, inside of mouth sores, and back pain Medications Medication SIG (Take, Route, Frequency, Duration) Notes Start Date End Date Status Medrol 2 MG 1 tab(s) Orally Two times a day 03/12/2024 Active Clopidogrel Bisulfate 75 MG 1 tab(s) orally once a day Active Doxycycline Hyclate 100 MG 1 capsule Orally Two times a day; Duration: 10 day(s) 03/12/2024 Active LORazepam 1 MG 1 tab(s) orally 2 ti mes a day Not-Taking Farxiga 10 MG 1 tablet Orally Once a day; Duration: 90 days 10/10/2023 Active Tadalafil 5 MG 1 tab(s) orally once a day Not-Taking Lisinopril 20 MG 1 tab(s) orally Two times a day Active Bisoprolol Fumarate 5 MG 1 tab(s) orally once a day Active Xarelto 20 MG 1 tab(s) orally once a day (in the evening); Duration: 90 days Active GNP Nicotine Polacrilex 4 mg chew 1 piece of gum EVERY 2 HOURS NEEDED DIRECTED; Duration: 30 Active Atorvastatin Calcium 80 mg TAKE ONE TABLET BY MOUTH EVERY DAY AT BEDTIME; Duration: 15 Active Vital Signs Blood pressure systolic 120 mm Hg 03/12/19 25 Blood pressure diastolic 82 mm Hg 025 Heart Rate 67 /min 03/12/2024 Height 71 in 03/12/2024 Weight 195.6 lbs 03/12/2024 BMI 27.28 kg/m2 03/12/2024 Encounters Encounter Location Date Provider Diagnosis [facility] [address] [facility] [address] [place] [id number] 03/12/2024 Brittany Marcos Acute sinusitis J01.90 Assessments Encounter Date Diagnosis (ICD Code) Assessment Notes Treatment Notes Treatment Clinical Notes Section Notes 03/12/2024 Acute sinusitis (ICD-10 - J01.90) Plan Of Treatment Medication Medication Name Sig Start Date Stop Date Notes Medrol 2 MG 1 tab(s) Orally Two times a day 03/12/2024 Doxycycline Hyclate 100 MG 1 capsule Ora lly Two times a day; Duration: 10 day(s) 03/12/2024 Next Appt Details Follow Up: prn, Reason: Progress Notes * SKYE PENAJOSIEDOB: 8 (49 yo M)Acc No.[id number]:03/12/2024 Progress Notes Patient: FRANKLIN PRITCHETT Provider: Brittany Marcos M.D. :1975 A ge:48 Y S ex:Male Date:03/12/2024 Address:[address] [place], [place] [id number] Subjective: * Chief Complaints: * 1 . Fever, chills, inside of mouth sores, and back pain. * HPI: E NT/respiratory: He started about a week ago with sore throat, headache, body aches, fever, and chills which lasted about 3 days. The symptoms have improved but now has head congestion, left maxillary sinus pressure, and swelling of his upper gums on the left side. He also has some residual cough. * ROS: D ERMATOLOGY: no R javier. n o H dominic. G ASTROENTEROLOGY: no N ausea. n o V omiting. n o D iarrhea.? U ROLOGY: no D ifficulty urinating. n o B lood in urine. * Medical History: A SCVD - s/p STEMI, Hypertension, Hyperlipidemia, Paroxysmal A-fib, Pre-diabetes. * Surgical History: C olonoscopy 2020, Endoscopy , [facility] with Stent Placement x 3 - Dr. Santos 04/2021. * Hospitalization/Major Diagno stic Procedure: H eart Attack and Covid 04/2021. * Family History: M other: diagnosed with Heart Disease. Aunt- diabetes Uncle- Hypertension and Stroke Cousins- Cancer. * Social History: C URRENT TOBACCO USE: No . C affeine: yes, frequency:. Alcohol: no. * Medications: T aking Farxiga 10 MG Tablet 1 tablet Orally Once a day , Taking Bisoprolol Fumarate 5 MG Tablet 1 tab(s) orally once a day , Taking Lisinopril 20 MG Tablet 1 tab(s) orally Two times a day , Taking Clopidogrel Bisulfate 75 MG Tablet 1 tab(s) orally once a day , Taking Atorvastatin Calcium 80 mg Tablet TAKE ONE TABLET BY MOUTH EVERY DAY AT BEDTIME , Taking GNP Nicotine Polacrilex 4 mg Gum chew 1 piece of gum EVERY 2 HOURS NEEDED DIRECTED , Taking Xarelto 20 MG Tablet 1 tab(s) orally once a day (in the evening) , Not-Taking LORazepam 1 MG Tablet 1 tab(s) orally 2 times a day , Not-Taking Tadalafil 5 MG Tablet 1 tab(s) orally once a day , Discontinued Pantoprazole Sodium 40 MG Tablet Delayed Release 1 tab(s) orally once a day , Discontinued Meclizine HCl 25 MG Tablet 1 tablet as needed Orally Three times a day , Medication List reviewed and reconciled with the patient * Allergies: N .K.D.A. Objective: * Vitals: W t:195.6, Temp:98.3, BP:120/82, HR:67, Nurse:ALBIN, Ht: 71, BMI:27.28. * Examination: E NT/Respiratory: General Appearance: N AD. E ars: E xternal canals occluded with wax. N ose : mild congestion. S inuses : T dimitry left maxillary sinus. O ral cavity : L eft upper gums are mildly swollen. No dental sensitivity.. N judy : n o cervical lymphadenopathy. H eart : R RR, normal S1 S2, no murmurs. L ungs:?clear to auscultation bilaterally. Assessment: * Assessment: 1. A livier sinusitis - J01.90 (Primary) Plan: * Treatment: Value Reference Range w bc 5.6 3.5 - 10 * l ym 34.2% 15 - 50 * m id 8.2% 2 - 15 * g ran 5.19 35 - 80 * r bc 14.6 3.5 - 5.5 * h gb 14.6 11.5 - 16.5 * h ct 46.1 35 - 55 * m cv 88.8 75 - 100 * m ch 28.2 25 - 35 * m chc 31.8 31 - 38 * p lat 247 100 - 400 * Tri Cortez 03/12/2024 12:0 6:11 PM > , Provider reviewed results while patient in office. * Procedure Codes: 3 6416 CAPILLARY BLOOD DRAW, 20917 CBC WITH AUTO DIFF * Follow Up: p rn * Images: Billing Information: * Visit Code: 25582 Office Visit, Est Pt., Level 4. * Procedure Codes: 18421 CAPILLARY BLOOD DRAW. 26337 CBC WITH AUTO DIFF. * Electronic signature of Brittany Marcos MD on 10/29/2024 at 06:13 AM EDT Sign off status: Pending * Provider: Brittany Marcos M.D. Date: 0 03/12/2024 Generated for Nico vinson/Felipe/Fiorellaitting on: 0 10/29/2024 06:13 AM EDT History and Physical Notes * Examination Category Sub-Category Detail Notes Category Not es ENT/Respiratory Oral cavity : Left upper gums are mildly swollen. No dental sensitivity. Sinuses : Tender left maxillar y sinus Ears: External canals occl uded with wax Neck : no cervical lymphade nopathy Heart : RRR, normal S1 S2, n o murmurs Lungs: clear to auscultatio n bilaterally General Appearance: NAD Nose : mild congestion
--- OUTSIDE RECORDS SUMMARY | 2024-07-24 09:30 | XMS_ITS ---
[facility] Address [address] [id number] Care Team Providers Care Tunnel Miner Name Role Phone Priti Brittany Peter Unavailable [phone] Meena Spivey Unavailable [phone] Allergies No Known Allergies Results Component Value Reference Range Notes Influenza Screen (in house) Reviewed date:07/26/2024 11:23:03 PM Interpretation:neg Performing Lab: Notes/Report: neg results neg CBC Fingerstick (in house) Reviewed date:07/26/2024 11:23:03 PM Interpretation: Performing Lab: Notes/Report: wbc 7.7 3.5 - 10 lym 25.5 15 - 50 mid 6.0 2 - 15 gran 68.5 35 - 80 rbc 5.48 3.5 - 5.5 hgb 15.4 11.5 - 16.5 hct 48.1 35 - 55 mcv 87.8 75 - 100 mch 28.2 25 - 35 mchc 32.1 31 - 38 plat 242 100 - 400 Covid test (in house) Reviewed date:07/26/2024 11:23:03 PM Interpretation:neg Performing Lab: Notes/Report: neg Result: neg REASON FOR VISIT cough, congestion, chest pain Medications Medication SIG (Take, Route, Frequency, Duration) Notes Start Date End Date Status Medrol 4 MG as directed orally daily; Duration: 6 days 07/24/2024 Active Bisoprolol Fumarate 5 MG 1 tab(s) orally once a day Active Lisinopril 20 MG 1 tab(s) orally Two times a day Active Clopidogrel Bisulfate 75 MG 1 tab(s) orally once a day Active Tadalafil 5 MG 1 tab(s) orally once a day Not-Taking Atorvastatin Calcium 80 mg TAKE ONE TABLET BY MOUTH EVERY DAY AT BEDTIME; Duration: 15 Active Xarelto 20 MG 1 tab(s) orally once a day (in the evening); Duration: 90 days Active Farxiga 10 mg TAKE ONE TABLET BY MOUTH EVERY DAY; Duration: 90 Active Nicotine Polacrilex 4 mg chew 1 piece of gum EVERY 2 HOURS NEEDED DIRECTED; Duration: 9 Active LORazepam 1 MG 1 tab(s) orally 2 ti mes a day Not-Taking Vital Signs Blood pressure systolic 120 mm Hg 07/25/19 25 Blood pressure diastolic 62 mm Hg 025 Heart Rate 82 /min 07/24/2024 Height 71 in 07/24/2024 Weight 193.0 lbs 07/24/2024 BMI 26.92 kg/m2 07/24/2024 Encounters Encounter Location Date Provider Diagnosis [facility] [address] [id number] 07/24/2024 Meena Spivey Acute URI J06.9 Assessments Encounter Date Diagnosis (ICD Code) Assessment Notes Treatment Notes Treatment Clinical Notes Section Notes 07/24/2024 Acute URI (ICD-10 - J06.9) fluids, rest, supportive measures for fever/symptom relief Plan Of Treatment Medication Medication Name Sig Start Date Stop Date Notes Medrol 4 MG as directed orally daily; Duration: 6 days Treatment Notes Assessment Notes Acute URI fluids, rest, suppor tive measures for fever/symptom relief Next Appt Details Follow Up: prn, Reason: Progress Notes * SKYE PENAJOSIEDOB: 8 (49 yo M)Acc No.[id number]:07/24/2024 Progress Notes Patient: FRANKLIN PRITCHETT Provider: MONTSE Gunderson :1975 A ge:49 Y S ex:Male Date:07/24/2024 Address:[address] [place], [place] [id number] Subjective: * Chief Complaints: * 1 . Cough, congestion, chest pain. * HPI: E NT/respiratory: 49 year old male presents with c/o cough P t sts he is here today with flu like symptoms that he has had since Saturday. c/o nasal congestion. c/o chest congestion. Denies : Fever. * ROS: D ERMATOLOGY: no R javier. n o H dominic. G ASTROENTEROLOGY: no N ausea. n o V omiting. n o D iarrhea.? U ROLOGY: no D ifficulty urinating. n o B lood in urine. * Medical History: A SCVD - s/p STEMI, Hypertension, Hyperlipidemia, Paroxysmal A-fib, Pre-diabetes. * Surgical History: C olonoscopy 2020, Endoscopy , [facility] with Stent Placement x 3 - Dr. Santos 04/2021. * Hospitalization/Major Diagno stic Procedure: H eart Attack and Covid 04/2021. * Family History: M other: diagnosed with Heart Disease. Aunt- diabetes Uncle- Hypertension and Stroke Cousins- Cancer. * Medications: T aking Bisoprolol Fumarate 5 MG Tablet 1 tab(s) orally once a day , Taking Lisinopril 20 MG Tablet 1 tab(s) orally Two times a day , Taking Clopidogrel Bisulfate 75 MG Tablet 1 tab(s) orally once a day , Taking Atorvastatin Calcium 80 mg Tablet TAKE ONE TABLET BY MOUTH EVERY DAY AT BEDTIME , Taking Xarelto 20 MG Tablet 1 tab(s) orally once a day (in the evening) , Taking Farxiga 10 mg Tablet TAKE ONE TABLET BY MOUTH EVERY DAY , Taking Nicotine Polacrilex 4 mg Gum chew 1 piece of gum EVERY 2 HOURS NEEDED DIRECTED , Not-Taking LORazepam 1 MG Tablet 1 tab(s) orally 2 times a day , Not-Taking Tadalafil 5 MG Tablet 1 tab(s) orally once a day , Medication List reviewed and reconciled with the patient * Allergies: N .K.D.A. Objective: * Vitals: W t: 193.0, Temp: 97.7, BP: 120/62, HR: 82, Nurse: ines, Ht: 71, BMI:26.92. * Examination: E NT/Respiratory: General Appearance: N AD. E ars: a uditory canals normal bilaterally, TM's WNL. N ose : turbinates red, congested. S inuses : tender maxillary sinuses bilaterally. O ral cavity : erythema without exudate on pharynx. N judy : n o cervical lymphadenopathy. H eart : R RR, normal S1 S2, no murmurs. L ungs: c lear to auscultation bilaterally. Assessment: * Assessment: Becca maier URI - J06.9 (Primary) Plan: * Treatment: Value Reference Range r esults neg * Mona Dumont 07/24/2024 01:5 3:34 PM > Provider reviewed results while patient in office. ?LAB: CBC Fingerstick (in house) (Collection Date & Time - 07/24/2024)* Value Reference Range w bc 7.7 3.5 - 10 * l ym 25.5 15 - 50 * m id 6.0 2 - 15 * g ran 68.5 35 - 80 * r bc 5.48 3.5 - 5.5 * h gb 15.4 11.5 - 16.5 * h ct 48.1 35 - 55 * m cv 87.8 75 - 100 * m ch 28.2 25 - 35 * m chc 32.1 31 - 38 * p lat 242 100 - 400 * Mona Dumont 07/24/2024 01:3 6:33 PM > Provider reviewed results while patient in office. ?LAB: Covid test (in house) (Collection Date & Time - 07/24/2024)?neg* Value Reference Range R esult: neg * Mona Dumont 07/24/2024 01:5 3:13 PM > Provider reviewed results while patient in office. Notes: fluids, rest, supportive measures for fever/symptom relief?? * Procedure Codes: 3 6416 CAPILLARY BLOOD DRAW, 40276 CBC WITH AUTO DIFF, 66620 Flu Test- Nasal Swab, Modifiers: QW , 26952 COVID TEST IN HOUSE, Modifiers: QW * Follow Up: p rn * Images: Billing Information: * Visit Code: 96183 Office Visit, Est Pt., Level 3. * Procedure Codes: 66799 CAPILLARY BLOOD DRAW. 63727 CBC WITH AUTO DIFF. 97575 Flu Test- Nasal Swab. Modifiers: QW 41685 COVID TEST IN HOUSE. Modifiers: QW * Electronic signature of MONTSE Martins on 10/29/2024 at 06:13 AM EDT Sign off status: Pending * Provider: MONTSE Gunderson Date: 0 07/24/2024 Generated for Nico vinson/Felipe/eTransmitting on: 0 10/29/2024 06:13 AM EDT History and Physical Notes * HPI (History of Present Illness) Category Sub-Category Detail Notes Category Not es ENT/respiratory cough Pt sts he is her e today with flu like symptoms that he has had since Saturday Fever chest congestion nasal congestion Examination Category Sub-Category Detail Notes Category Not es ENT/Respiratory Oral cavity : erythema without exudate on pharynx Sinuses : tender maxillary sin uses bilaterally Ears: auditory canals norm al bilaterally, TM's WNL Neck : no cervical lymphade nopathy Heart : RRR, normal S1 S2, n o murmurs Lungs: clear to auscultatio n bilaterally General Appearance: NAD Nose : turbinates red, virgilio ested
--- NOTE | 2024-10-29 | CA_ITS ---
APPROVED REPORT Exam: Exercise Treadmill Technologist: Cecilia Bravo Ht: 5 ft 11 in Wt: 193 lbs BSA: 2.08 m2 Medical History Medications: atorvastatin, bisoprolol dumarate, buspirone, clopidogrel, farxiga, dexlansoprazole, isosorbide mononitrate ER, linzess, lisinopril, lorazepam, nicotine, xarelto, tadalafil. Stress Test Details Test: Exercise stress testing was performed using a Fly protocol. HR Resting HR: 61 bpm Max Heart Rate (APMHR): 173.401908 bpm Max HR Achieved: 149 bpm Target HR (85% APMHR): 147.477464 bpm % of APMHR: 86.13 Recovery HR: 86 bpm BP Resting BP: 132.0/87.0 mmHg Max BP: 180.0/90.0 mmHg Recovery BP: 146.0/79.0 mmHg ECG Clinical Highest Stage Achieved: V Stress ECG Conclusion Max HR: 149 % of PM: 85% Max BP: 180/90 METs: 12.4 Test stopped due to: Target HR achieved. Symptoms: None. Arrhythmias/Ectopy: PVC. ST-T Changes: Less than 1.5mm ST segment changes. Conclusion: DTS=12. Electronically signed by : Chey Leigh MD 10/30/2024 21:25:35
--- OUTSIDE RECORDS SUMMARY | 2024-10-29 06:12 | XMS_ITS | Clinical Summary ---
Author Organization [facility] Address [address] [place] [address] Care Team Providers Care Acid Wash Operator Name Role Phone Carlos Quinteros MD Primary Care Provider [phone] Medications Sod Picosulfate-Mag Ox-Cit Acd 10-3.5-12 MG-GM [...] Recently Relevant to Health Maintenance Insurance [employer] [facility] Care Teams Acid Wash Operator Relationship Specialty Start Date End Date Carlos Quinteros MD [address] [place] [address] PCP - General Family Medicine 01/18/21
--- OUTSIDE RECORDS SUMMARY | 2024-10-29 06:13 | XMS_ITS | Patient Health Record ---
[facility] Address [address] [place], [place] [id number] Care Team Providers Care Pole Classifier Name Role Phone PritiBrittany Unavailable [phone] Meena Spivey Unavailable [phone] Allergies No Known Allergies Results Component Value [...] Interpretation:neg Performing Lab: Notes/Report: neg Result: neg CBC Fingerstick (in house) Reviewed date:03/12/2024 01:18:51 [...] - 38 plat 247 100 - 400 Reason For Referral No Information Medications Medication SIG (Take, Route, Frequency, Duration) Notes Start Date End Date Status Xarelto 20 mg TAKE ONE TABLET BY MOUTH EVERY EVENING; Duration: 30 Active Medrol 4 MG as directed orally daily; Duration: 6 days 07/24/2024 Active Benzonatate 200 MG 1 capsule as needed Orally Three times a day, prn 08/06/2024 Active Nicotine Polacrilex 4 mg chew 1 piece of gum orally every 2 hours; Duration: 10 days Active Bisoprolol Fumarate 5 MG 1 tab(s) orally once a day Active Lisinopril 20 MG 1 tab(s) orally Two times a day Active Clopidogrel Bisulfate 75 MG 1 tab(s) orally once a day Active Atorvastatin Calcium 80 mg TAKE ONE TABLET BY MOUTH EVERY DAY AT BEDTIME; Duration: 15 Active Farxiga 10 mg TAKE ONE TABLET BY MOUTH EVERY DAY; Duration: 90 Active LORazepam 1 MG 1 tab(s) orally 2 ti mes a day Not-Taking Tadalafil 5 MG 1 tab(s) orally once a day Not-Taking Immunizations Vaccine Route Administration Date Status Comme nts COVID 19 Moderna Unknown 2020 Administered COVID 19 Moderna Unknown 04/29/2020 Administered DT, 7 YEARS OR OLDER Unknown 05/12/1996 Administered Tetanus Tdap-Adacel (over 7yrs) Unknown 03/23/2021 Admi nistered Problems Problem Type SNOMED Code ICD Code Onset Dates Problem Status W/U Status Risk Notes Problem Coronary arteriosclerosis (69515570) ASCVD (arteriosclerotic cardiovascular disease) (I25.10) Active confirmed Problem Paroxysmal atrial fibrillation (513056315) Paroxysmal atrial fibrillation (I48.0) Active confirmed Problem Ischemic cardiomyopathy (674794093) Ischemic cardiomyopathy (I25.5) Active confirmed Problem HBP - High blood pressure (47676676) HBP (high blood pressure) (I10) Active confirmed Problem STEMI - ST elevation myocardial infarction (045617852) ST elevation myocardial infarction (STEMI), unspecified artery (I21.3) Active confirmed Problem Prediabetes (879375877) Prediabetes (R73.09) Active confirmed Vital Signs Heart Rate 82 /min 07/24/2024 Blood pressure diastolic 62 mm Hg 07/24/2024 Height 71 in 07/24/2024 Blood pressure systolic 120 mm Hg 07/24/2024 Weight 193.0 lbs 07/24/2024 BMI 26.92 kg/m2 07/24/2024 Encounters Encounter Location Date Provider Diagnosis [facility] [address] [place] [id number] 03/12/2024 R Rome Marcos Acute sinusitis J01.90 [facility] [address] [facility] [address] [place] [id number] 07/24/2024 Meena Spivey Acute URI J06.9 [facility] [address] [place] [id number] 03/23/2024 R Rome Flahertyeet Acute sinusitis J01.90 [facility] [address] [facility] 36 [facility] [address] [place] [id number] 08/06/2024 Meena Spivey Assessments Encounter Date Diagnosis (ICD Code) Assessment Notes Treatment Notes Treatment Clinical Notes Section Notes 03/12/2024 Acute sinusitis (ICD-10 - J01.90) 03/23/2024 Acute sinusitis (ICD-10 - J01.90) 07/24/2024 Acute URI (ICD-10 - J06.9) fluids, rest, supportive measures for fever/symptom relief Plan Of Treatment No Information Insurance Providers Payer Name Payer Address Payer Phone Subscriber Number Group Number Insured Name Patient Relationship to Insured Coverage Start Date Coverage End Date [facility] [address] [place] [address] [id number] FRANKLIN PENA Self - patient is the insured Medical (General) History Medical History History ICD Code ASCVD - s/p STEMI hypertension hyperlipidemia Paroxysmal A-fib Pre-diabetes Surgical History Surgery Date(Month/Year) Colonoscopy 2020 Endoscopy [facility] with Stent Placement x 3 - Dr. Son wren 04/2021 Hospitalization History Reason Date(Month/Year) Heart Attack and Covid 04/2021
--- NOTE | 2024-10-29 06:30 | NM_ITS ---
APPROVED REPORT Exam: Nuclear Stress Test Indication: cp..fatigue Patient Location: Outpatient Stress Tech: Cecilia Dodson [place] Tech:SMILEY Padilla RT(R)(N) Ht: 5 ft 11 in Wt: 190 lbs HR: 62 bpm BP: 132/87 mmHg BSA: 2.06 m2 TID: 1.13 BMI: 26.4 History: cp..fatigue Procedure: Patient exercised on Fly protocol 12:11 minutes and sec, resting heart rate 62 bpm, resting blood pressure 132/87 mmHg, with exercise maximum heart rate achived was 149 bpm which is 86 % of the maximum predicted heart rate and blood pressure was 160/89 mmHg. Patient denied any complaint of chest pain. Patient has Average exercise capacity, achieved 12.4 METs of workload on treadmill, the blood pressure response to exercise was Normal. Cardiac Stress and Resting SPECT Images: Cardiac Stress and Resting SPECT images were obtained using technetium 99m Myoview 31.6 mCi stress and 10.76 mCi at rest. Resting and stress imaging in supine and prone positions demonstrate a medium sized, moderate, predominantly reversible perfusion defect in the basal inferior LV wall. Gated imaging demonstrates mild reduction in global LV systolic function. LVEF is calculated at 47%. Conclusion: Medium sized, moderate, predominantly reversible perfusion defect in the basal inferior LV wall. Findings are suggestive of reversible ischemia. Gated imaging demonstrates mild reduction in global LV systolic function. LVEF is calculated at 47%. Electronically signed by : Chey Leigh MD 10/29/2024 13:13:48
[2024-10-29] MEDS: SODIUM CHLORIDE 0.9% 10ML SYR (RAD ONLY) 10 ML IV ×2 (09:35)
[2024-10-29] MEDS: ISOTOPE MYOVIEW (PER STUDY) 1 DOSE IV (09:35)
== END 2024-10-29 23:59 | disposition home or self-care (01) ==
LOC: RAD 06:11
PROVIDERS: PCP Family Medicine; Visit Provider Nurse Practitioner Family
DX: I49.3 Ventricular premature depolarization (principal); I25.10 Atherosclerotic heart disease of native coronary artery without angina pectoris; N52.9 Male erectile dysfunction, unspecified; I48.91 Unspecified atrial fibrillation; I10 Essential (primary) hypertension; R94.39 Abnormal result of other cardiovascular function study; R94.31 Abnormal electrocardiogram [ECG] [EKG]; Z12.5 Encounter for screening for malignant neoplasm of prostate
CPT/HCPCS: 78452; 93016; 93017; 93018; A9502

== ENCOUNTER 2024-11-11 12:34 | Outpatient (CLI) | payer OTHER, SELFPAY ==
--- OUTSIDE RECORDS SUMMARY | 2024-11-11 12:37 | XMS_ITS | Clinical Summary ---
Author Organization [facility] Address [address] [place] [address] Care Team Providers Care [employer] Boat [employer]isher Name Role Phone Carlos Quinteros MD Primary Care Provider [phone] Medications Sod Picosulfate-Mag Ox-Cit Acd 10-3.5-12 MG-GM [...] Recently Relevant to Health Maintenance Insurance [employer] [facility] Care Teams Fib[employer]lass Boat Finisher Relationship Specialty Start Date End Date Carlos Quinteros MD [address] [place] [id number] PCP - General Family Medicine 01/18/21
--- NOTE | 2024-11-11 13:00 | CA_ITS ---
APPROVED REPORT EXAM: Comprehensive 2D, Doppler, and color-flow Echocardiogram Lathe Mechanic: Nhi Wray, RT(R) Ht: 5 ft 11 in Wt: 195lbs BSA: 2.09 BP: 117/84 mmHg Indications: chest pain, abn stress EF 47%, hx of CM 2D Dimensions LVEF (Lopez's) 52.20 % M: 52 - 72 LV Volume 111.20 mL M: 62 - 150 LV Volume Index 53.2 mL/m2 M: 34 - 74 LA Volume 10.70 mL LA Volume Index 5.12 mL/m2 (M/F) 16-34 EF AP4 50.70 % EF AP2 53.9 % EF BP 52.2 % GL Strain -18.5 % M-Mode Dimensions RVDd 2.45 cm (0.9-2.6) LA Diam 2.89 cm (1.9-4.0) LVDd 4.23 cm (3.5-5.7) LVDs 3.22 cm (3.5-5.7) IVSd 1.01 cm (0.6-1.1) PWd 0.74 cm (0.6-1.1) EF (Teich) 47.90% FS 23.90% EDV (Teich) 79.90 mL ESV (Teich) 41.60 mL LV Diastology E Decel Time 150 (160-240 msec) E/A Ratio 1.2 Mitral Valve MV E Max Rubio. 95.0 (40-130 cm/s) MV A Velocity 82.0 (40-130 cm/s) E/A Ratio 1.15 MV PHT 44.0 ms Tricuspid Valve TR P. Velocity 252.00 cm/s RAP Estimate 10.00 mmHg RVSP 35.40 mmHg Left Ventricle The left ventricle is normal size. Left ventricular systolic function is low-normal. There is normal left ventricular wall thickness. There is normal LV segmental wall motion. The left ventricular diastolic function is normal. LVEF is 50-55% Right Ventricle The right ventricle is normal size. The right ventricular systolic function is normal. Atria The left atrium size is normal. The right atrium size is normal. There is no color Doppler evidence of interatrial shunt. Aortic Valve The aortic valve opens well. There is no hemodynamically significant aortic valvular stenosis. No aortic regurgitation is present. Mitral Valve The mitral valve is normal in structure. No evidence of mitral valve stenosis. Trace mitral regurgitation is present. Tricuspid Valve The tricuspid valve leaflets are thin and pliable. Trace tricuspid regurgitation. There is insufficient TR jet to estimate RVSP. Pulmonic Valve The pulmonary valve is grossly normal in structure. Trace pulmonic valve regurgitation is present. Great Vessels The aortic root is normal in size. IVC is normal in size and collapses >50% with inspiration. Pericardium There is no pericardial effusion. Other Information Study Quality: Fair Conclusion Low-normal biventricular systolic function (LVEF 50-55%). No significant valvular stenosis or regurgitation. Electronically signed by : Chey Leigh MD 11/11/2024 18:44:54
[2024-11-11 13:33] LABS: Hemoglobin A1C 6.2 % (4.0-6.0)
== END 2024-11-11 23:59 | disposition home or self-care (01) ==
LOC: RT 12:35
PROVIDERS: PCP Family Medicine; Visit Provider Nurse Practitioner Family
DX: I25.119 Atherosclerotic heart disease of native coronary artery with unspecified angina pectoris (principal); R94.39 Abnormal result of other cardiovascular function study; R73.9 Hyperglycemia, unspecified; R07.9 Chest pain, unspecified
CPT/HCPCS: 36415; 83036; 93306

== ENCOUNTER 2024-11-19 09:16 | Day surgery (SDC) | payer OTHER, SELFPAY ==
[2024-11-19] VITALS (12 sets, daily range): BP systolic 107–136; BP diastolic 66–96; PULSE 50–71; RESP 18–20; TEMP 36.6; O2SAT 94–98; BMI 27.1
--- NOTE | 2024-11-19 07:15 | IR_ITS ---
APPROVED REPORT Patient Location: Outpatient Tentmaker: Eamon Luke, RT (R) PROCEDURES Left heart catheterization Left ventriculogram Selective coronary angiogram Intravascular ultrasound to the right coronary artery INDICATION Abnormal Myoview, Known coronary artery disease, Angina pectoris, History of coronary artery stents with angiographic ambiguity distally Informed consent was obtained prior to the procedure. COMPLICATIONS NONE Estimated Blood Loss: LESS THAN 10 ML TECHNIQUE One percent lidocaine used to anesthetize the right anterior aspect of the wrist. The right radial artery was accessed via the Seldinger technique. A 6 Syriac sheath was placed in the right radial artery. 2.5 mg of Verapamil, 800 mcg of nitroglycerin, 1mg Lidocaine and 5000 U Heparin were given through the arterial sheath. The JL3 catheter was also used to perform left heart catheterization, left ventriculogram and selective coronary angiogram. At the end the diagnostic angiogram therapeutic Was administered giving a therapeutic ACT and the guide catheter was placed in the right coronary followed by Choice PT extra-support wire. Intravascular ultrasound probe was advanced to interrogate the distal right coronary artery. The MLA distal to the stent was 5.1 mm???. Because of this the apparatus was removed good hemostasis was achieved using TR banding patient was transferred to the postop putting in stable condition. ANGIOGRAPHIC RESULTS The left main artery Normal The left anterior descending artery Has a stent in the proximal segment which is widely patent free of in-stent restenosis with excellent proximal distal transitioning the remaining LAD is widely patent with mild 10% luminal regularities The circumflex artery Is nondominant has a proximal 30% stenosis with an additional 30% stenosis in the ostial first obtuse marginal artery while the second obtuse marginal artery has a proximal 50% and mid vessel 80% stenosis. The vessel was 2 mm in diameter and then gives rise to 2 additional downstream obtuse marginal arteries 1 being small in the abdomen being small to medium in size but both less than 1.5 mm in diameter The right coronary artery Large and dominant with a proximal 20% stenosis followed by proximal to mid vessel stent which also extends into the distal segment. The stent is widely patent with minimal in-stent restenosis. Distally there is a 30 to 40% transitioning stenosis which has an MLA of 5.1 mm???. The MORGAN ventriculogram reveals Not performed The left ventricular end-diastolic pressure Not measured IMPRESSION Coronary artery disease which is unchanged from previous cardiac catheterization PLAN 1. Continue risk factor modification 2. I would strongly discourage any attempt at percutaneously revascularizing the nondominant circumflex artery. Medical management is much more desirable than small stents in the small vessels 3. Maximize antianginals Electronically signed by : Satish Santos MD 11/19/2024 15:36:30
[2024-11-19] MEDS: diazePAM 5MG TABLET 5 MG PO (09:48)
[2024-11-19 09:52] LABS: Hematocrit 46.6 % (42.0-52.0); Hemoglobin 14.9 g/dL (14.1-18.0); Immature Granulocytes % 0.2 %; Mean Corpuscular HGB Conc 32.0 g/dL (31.8-35.4); Mean Corpuscular Hemoglobin 28.4 pg (27.0-31.2); Mean Corpuscular Volume 88.8 fl (80-94); Nucleated Red Blood Cells % 0 %; Platelet Count 283 K/mm3 (142-424); Red Blood Count 5.25 M/mm3 (4.60-6.20); Red Cell Distribution Width-SD 43.8 fL; White Blood Count 4.7 K/mm3 (4.8-10.8)
[2024-11-19 09:59] LABS: Anion Gap 10.3 mEq/L (5-15); Blood Urea Nitrogen 16 mg/dl (9-20); Calcium 9.4 mg/dl (8.4-10.2); Carbon Dioxide 33 mmol/L (22.0-30.0); Chloride 101 mmol/L (98-107); Creatinine Clearance Estimated 95 mL/min (50-200); Creatinine,Serum 1.20 mg/dl (0.66-1.25); Estimated Glomerular Filt Rate 65 ml/min (>60); GFR (African American) 79 ML/MIN (>60); Glucose 103 mg/dl (74-100); Potassium 4.3 mmoL/L (3.5-5.1); Sodium 140 mmol/L (136-145)
--- NOTE | 2024-11-19 11:01 | SUR.PHASEII ---
pt awaiting procedure. updated on plan of care. at bedside.
[2024-11-19] MEDS: HEPARIN 1,000 UNITS/500ML NS (CATH LAB) 3000 UNIT IV (11:32)
[2024-11-19] MEDS: NITROGLYCERIN 800MCG/8ML SYR (CATH LAB) 800 MCG IA (11:32)
[2024-11-19] MEDS: VERAPAMIL 2.5MG/ML 2ML VIAL 2.5 MG IV (11:32)
[2024-11-19] MEDS: HEPARIN 1,000 UNITS/ML 10ML VIAL (CATH LAB) 5000 UNIT IV (11:32)
[2024-11-19] MEDS: LIDOCAINE 1% 10ML MDV 10 ML IJ (11:32)
[2024-11-19] MEDS: 0.9 % SODIUM CHLORIDE 500 ML 25 ML IV (11:33)
[2024-11-19] MEDS: FENTANYL 100MCG/2ML VIAL 50 MCG IV (11:33)
[2024-11-19] MEDS: MIDAZOLAM HCL 1MG/ML 5ML VIAL 1 MG IV (11:33)
--- NOTE | 2024-11-19 12:44 | SUR.PHASEII ---
came to [facility] doors inquring about patient, updated her on poc, stated she was stepping outside and will be back to speak with the doctor.
== END 2024-11-19 15:18 | disposition home or self-care (01) ==
LOC: CATHLAB 09:18
PROVIDERS: PCP Family Medicine; Visit Provider Internal Medicine
PROC: 4A023N7 Measurement of Cardiac Sampling and Pressure, Left Heart, Percutaneous Approach (ICD-10-PCS; CPT 93452; principal; 2024-11-19 11:15)
DX: I25.118 Atherosclerotic heart disease of native coronary artery with other forms of angina pectoris (principal); I10 Essential (primary) hypertension; N52.9 Male erectile dysfunction, unspecified; R94.31 Abnormal electrocardiogram [ECG] [EKG]; R94.39 Abnormal result of other cardiovascular function study; E78.2 Mixed hyperlipidemia; K21.9 Gastro-esophageal reflux disease without esophagitis; Z87.891 Personal history of nicotine dependence; Z79.84 Long term (current) use of oral hypoglycemic drugs; Z79.01 Long term (current) use of anticoagulants; Z79.02 Long term (current) use of antithrombotics/antiplatelets; Z79.899 Other long term (current) drug therapy; Z95.5 Presence of coronary angioplasty implant and graft
CPT/HCPCS: 80048; 85025; 92978; 93458; 99152; C1725; C1769; J1200; J1644; J2003; J3010; J7040